=== PATIENT | male | born 1965 | race African-American/Black ===

== ENCOUNTER 2018-09-12 22:16 | Observation (INO) | payer MEDICARE, OTHER ==
[~2018-09-12] VITALS: Ht 170.2 cm; Wt 90.4 kg
[2018-09-13] MEDS ORDERED: SOD CHLORIDE 0.9% 500 ML IV STA (00:13)
[2018-09-13] MEDS ORDERED: morphine 4 MG/ML VIAL IV STA (00:13)
[2018-09-13] MEDS ORDERED: ONDANSETRON 4 MG INJ IV STA (00:13)
--- NOTE | 2018-09-13 02:53 | ERD ---
ER Documentation Chief Complaint Chief Complaint BIB SELF, CC: CHEST PAIN X 24 HOURS, NO MEDS TAKEN HPI This is a 53-year-old with chest pain for the past 24 hours on and off. Denies any fevers chills nausea vomiting. Mild associated shortness of breath. Pain is mild to moderate intensity with no exacerbating alleviating factors. Denies any cardiac history. ROS All systems reviewed and are negative except as per history of present illness. Allergies Allergies: Coded Allergies: acetaminophen (Verified Allergy, Unknown, 09/12/18) hydrocodone (Verified Allergy, Unknown, 09/12/18) ibuprofen (Verified Allergy, Unknown, 09/12/18) Physical Exam Vitals Vital Signs Date Temp Pulse Resp B/P (MAP) Pulse Ox O2 O2 Flow FiO2 Time Delivery Rate 09/13/18 107 16 132/89 99 Room Air 02:20 (103) 09/12/18 98.1 116 19 128/84 100 22:31 (99) Physical Exam Const: No acute distress Head: Atraumatic Eyes: Normal Conjunctiva ENT: Normal External Ears, Nose and Mouth. Neck: Full range of motion. No meningismus. Resp: Clear to auscultation bilaterally Cardio: Regular rate and rhythm, no murmurs Abd: Soft, non tender, non distended. Normal bowel sounds Skin: No petechiae or rashes Back: No midline or flank tenderness Ext: No cyanosis, or edema Neur: Awake and alert Psych: Normal Mood and Affect Result Diagram: 09/13/18 0104 09/13/18 0104 Results 24 hrs Laboratory Tests Test 09/13/18 01:04 White Blood Count 7.4 10^3/ul Red Blood Count 3.99 10^6/ul Hemoglobin 8.9 g/dl Hematocrit 28.7 % Mean Corpuscular Volume 71.9 fl Mean Corpuscular Hemoglobin 22.3 pg Mean Corpuscular Hemoglobin Concent 31.0 g/dl Red Cell Distribution Width 23.1 % Platelet Count 294 10^3/UL Mean Platelet Volume 9.7 fl Immature Granulocytes % 1.600 % Neutrophils % 67.8 % Lymphocytes % 18.8 % Monocytes % 11.0 % Eosinophils % 0.7 % Basophils % 0.1 % Nucleated Red Blood Cells % 0.0 /100WBC Immature Granulocytes # 0.120 10^3/ul Neutrophils # 5.0 10^3/ul Lymphocytes # 1.4 10^3/ul Monocytes # 0.8 10^3/ul Eosinophils # 0.1 10^3/ul Basophils # 0.0 10^3/ul Nucleated Red Blood Cells # 0.0 10^3/ul Prothrombin Time 12.4 Sec Prothrombin Time Ratio 1.0 INR International Normalized Ratio 0.91 Activated Partial Thromboplast Time 23.0 Sec Sodium Level 141 mmol/L Potassium Level 3.6 mmol/L Chloride Level 108 mmol/L Carbon Dioxide Level 24 mmol/L Anion Gap 9 Blood Urea Nitrogen 20 mg/dl Creatinine 1.11 mg/dl Est Glomerular Filtrat Rate mL/min > 60 mL/min Glucose Level 87 mg/dl Calcium Level 9.0 mg/dl Total Bilirubin 0.1 mg/dl Direct Bilirubin 0.00 mg/dl Indirect Bilirubin 0.1 mg/dl Aspartate Amino Transf (AST/SGOT) 94 IU/L Alanine Aminotransferase (ALT/SGPT) 103 IU/L Alkaline Phosphatase 124 IU/L Troponin I < 0.012 ng/ml B-Type Natriuretic Peptide 247 PG/ML Total Protein 6.7 g/dl Albumin 3.9 g/dl Globulin 2.80 g/dl Albumin/Globulin Ratio 1.39 Lipase 253 U/L Current Medications Medications Dose Sig/John Start Time Status Last (Trade) Ordered Route PRN Stop Time Admin Dose Reason Admin Sodium 500 ml @ Q1H STAT 09/13/18 DC 09/13/18 Chloride 500 mls/hr IV 00:13 09/13/18 00:54 01:12 Morphine 4 mg ONCE STAT 09/13/18 DC 09/13/18 Sulfate IV 00:13 09/13/18 00:53 (morphine) 00:14 Ondansetron 4 mg ONCE STAT 09/13/18 DC 09/13/18 HCl (Zofran IV 00:13 09/13/18 00:54 Inj) 00:14 1.25 mg Q4H RESP 09/13/18 UNV Levalbuterol THERAPY PRN 03:00 (Xopenex HHN WHEEZING Neb) AND RESP DISTRESS Morphine 1 mg Q4H PRN 09/13/18 UNV Sulfate IV SEVERE 03:00 (morphine) PAIN LEVEL 7-10 1 tab Q5M PRN 09/13/18 UNV Nitroglycerin SL ANGINA 03:00 (Nitroglyceri n (Sl Tab) 0.4 Mg) Procedures/MDM Emergency department course: Patient seen and evaluated by triage nurse. Placed in bed from evaluation. A stat cardiac workup. Placed on continuous chronic monitor. Given morphine is a former pain control. Serial exams are stable. EKG: Rate/Rhythm: [Normal Sinus Rhythm] QRS, ST, T-waves: [No changes consistent w/ acute ischemia] Impression: [No evidence of ischemia or arrhythmia] Chest X-ray 1V Interpreted by me: Soft Tissue: No acute abn ormalities Bones: No acute abnormalities Mediastinum/Cardiac Silhouette/Lungs: [No acute abnormalities] Medical decision making: Patient's symptoms are concerning for cardiac cause will require inpatient workup and continuous monitoring. Further w/u for ischemia, arrhythmia, PE or dissection will be deferred to the inpatient team. Accepting Care Team: Current data and ongoing care discussed. Time: 2 AM Primary Provider: Dr. Baltazar Consulting: Deferred to inpatient team Outstanding Data: none Departure Diagnosis: Primary Impression: Chest pain Chest pain type: unspecified Qualified Codes: R07.9 - Chest pain, unspecified Condition: Serious SUSANNE WASHINGTON Sep 13, 2018 02:53
[2018-09-13] MEDS ORDERED: NACL 0.9% 3 ML SYG IV SCH (03:00)
[2018-09-13] MEDS ORDERED: BISACODYL (EC) 5 MG TAB PO PRN (03:00)
[2018-09-13] MEDS ORDERED: ONDANSETRON 4 MG INJ IV PRN (03:00)
[2018-09-13] MEDS ORDERED: METHYLPREDNISOLONE 125 MG INJ IV ONE (03:00)
[2018-09-13] MEDS ORDERED: NITROGLYCERIN (SL) 0.4 MG TAB SL PRN ×2 (03:00)
[2018-09-13] MEDS ORDERED: morphine 2 MG INJ IV PRN (03:00)
[2018-09-13] MEDS ORDERED: FUROSEMIDE 40 MG INJ IV ONE (03:00)
[2018-09-13] MEDS ORDERED: LEVALBUTEROL (NEB) 1.25 MG/0.5 ML AMP HHN PRN (03:00)
[2018-09-13] MEDS ORDERED: DOCUSATE SODIUM 100 MG CAP PO PRN (03:00)
[2018-09-13 03:01] VITALS: PULSE 101
--- NOTE | 2018-09-13 03:07 | HP ---
Date/Time of Note Date/Time of Note DATE: 09/13/18 TIME: 02:53 Assessment/Plan VTE Prophylaxis SCD applied (from Nsg): Yes Pharmacological prophylaxis: NA/contraindicated Pharm contraindication: low risk/ambulating Lines/Catheters IV Catheter Type (from Nrsg): Saline Lock Assessment/Plan Hospital Course This is a 53-year-old male being admitted to the telemetry floor for: #1 chest pain: Rule out ACS versus asthma versus other. Will check cardiac enzymes x1, the first that was negative. Will check an echocardiogram. PRN nitro/morphine. Hemoglobin A1c TSH, lipid panel. Consider cardiology consultation #2 Bilateral wheezing: Asthma exacerbation versus CHF. Patient has trace bilateral lower extremity edema however chest x-ray appears clear. One-time dose of 20 mg of IV Lasix. Xopenex every 4 hours, Solu-Medrol loading dose f ollowed by prednisone burst times 5 days. #3 night sweats: Patient reports night sweats times 1 month. Patient also was noted to have microcytic anemia. Will check a stool occult blood. Will check HIV. Will check ethanol level urine drug screen, the patient denies any illicit drug use or alcohol. Consider further workup for possible underlying malignancy. Will check right upper quadrant ultrasound given patient's transaminitis. #4 microcytic anemia: Hemoglobin 8.9. We will check stool occult blood, iron stores, please see #3. #5 transaminitis: Check right upper quadrant ultrasound. Coagulation studies are within normal values. #6 asthma: Please see #2, will need to confirm patient's home medications #7 hypertension: We will need to confirm patient's home medications. #8 DVT GI prophylaxis: SCDs, and Protonix Further treatment strategy will be implemented as per the clinical course. Result Diagram: 09/13/18 01009/13/18 0104 Results 24hrs Laboratory Tests Test 09/13/18 01:04 White Blood Count 7.4 Red Blood Count 3.99 L Hemoglobin 8.9 L Hematocrit 28.7 L Mean Corpuscular Volume 71.9 L Mean Corpuscular Hemoglobin 22.3 L Mean Corpuscular Hemoglobin Concent 31.0 L Red Cell Distribution Width 23.1 H Platelet Count 294 Mean Platelet Volume 9.7 Immature Granulocytes % 1.600 H Neutrophils % 67.8 Lymphocytes % 18.8 Monocytes % 11.0 Eosinophils % 0.7 Basophils % 0.1 Nucleated Red Blood Cells % 0.0 Immature Granulocytes # 0.120 H Neutrophils # 5.0 Lymphocytes # 1.4 Monocytes # 0.8 Eosinophils # 0.1 Basophils # 0.0 Nucleated Red Blood Cells # 0.0 Prothrombin Time 12.4 Prothrombin Time Ratio 1.0 INR International Normalized Ratio 0.91 Activated Partial Thromboplast Time 23.0 Sodium Level 141 Potassium Level 3.6 Chloride Level 108 Carbon Dioxide Level 24 Anion Gap 9 Blood Urea Nitrogen 20 Creatinine 1.11 Est Glomerular Filtrat Rate mL/min > 60 Glucose Level 87 Calcium Level 9.0 Total Bilirubin 0.1 L Direct Bilirubin 0.00 Indirect Bilirubin 0.1 Aspartate Amino Transf (AST/SGOT) 94 H Alanine Aminotransferase (ALT/SGPT) 103 H Alkaline Phosphatase 124 H Troponin I < 0.012 B-Type Natriuretic Peptide 247 H Total Protein 6.7 Albumin 3.9 Globulin 2.80 Albumin/Globulin Ratio 1.39 Lipase 253 HPI/ROS Admit Date/Time Admit Date/Time Hx of Present Illness Chief complaint: Chest pain times 72 hours This is a 53-year-old male with a past medical history of asthma and hypertension who presents with 72 hours of left-sided chest pain. Patient repo rts that he had left-sided chest pain that was sharp in nature radiating across his chest into his left arm. He states that he try to see if it would get better on its own but since then get better and he did not feel better he came to the ER. He does report shortness of breath as well. He denies any diaphoresis. Denies any lower extremity edema. Denies any wheezing. Denies any fevers. He currently lives with his sister. Patient also does report that he has been experiencing night sweats for approximately 1 month. Denies any weight loss that he knows of. Denies any IV drug use, does report a history of smoking in the past. Denied is denies any high risk sexual activity. Denies an y drinking. Allergies: Acetaminophen, hydrocodone, ibuprofen Medications: See SEP ROS Const: As per HPI Eyes : No pain discharge or redness or change in visual acuity ENT: No pain, sore throat, congestion, congestion, dysphagia or discharge Respiratory: As per HPI Cardiovascular: As per HPI GI : no change in appetite, abdominal pain, nausea, vomiting, diarrhea, constipation, or change in the color his stool Genitourinary: No dysuria, hematuria, flank pain , discharge or CVA tenderness Musculoskeletal: No joint pain, back pain, neck pain, restricted range of motion in neck or joints Skin: No rash, bruising or hives Neuro: No headache, dizziness, syncope, seizure, focal weakness Endocrine: No polyuria, polydipsia, temperature intolerance Psych: No hallucination, depression, anxiety or suicidal ideation PMH/Family/Social Past Medical History Asthma, hypertension Medications Current Medications Levalbuterol (Xopenex Neb) 1.25 mg Q4H RESP THERAPY PRN HHN WHEEZING AND RESP DISTRESS; Start 09/13/18 at 03:00; Status UNV Morphine Sulfate (morphine) 1 mg Q4H PRN IV SEVERE PAIN LEVEL 7-10; Start 09/13/18 at 03:00; Status UNV Nitroglycerin (Nitroglycerin (Sl Tab) 0.4 Mg) 1 tab Q5M PRN SL ANGINA; Start 09/13/18 at 03:00; Status UNV Furosemide (Lasix) 40 mg ONCE ONCE IV ; Start 09/13/18 at 03:00; Stop 09/13/18 at 03:01; Status UNV Methylprednisolone Sodium Succinate (Solu-Medrol) 125 mg ONCE ONCE IV ; Start 09/13/18 at 03:00; Stop 09/13/18 at 03:01; Status UNV Coded Allergies: acetaminophen (Verified Allergy, Unknown, 09/12/18) hydrocodone (Verified Allergy, Unknown, 09/12/18) ibuprofen (Verified Allergy, Unknown, 09/12/18) Past Surgical History Left knee surgery, cholecystectomy Family History Significant Family History: no pertinent family hx Social History Alcohol Use: none Smoking Status: Former smoker Drug Use: none Exam/Review of Systems Vital Signs Vitals Vital Signs Date Temp Pulse Resp B/P (MAP) Pulse Ox O2 O2 Flow FiO2 Time Delivery Rate 09/13/18 107 16 132/89 99 Room Air 02:20 (103) 09/12/18 98.1 22:31 Exam Exam General: Currently lying in bed lethargic, reports chest pain HEENT: Atraumatic, normocephalic. The pupils are equal, round and reactive. Extraocular motor are intact Neck: Supple with full range of motion. No rigidity or meningismus Chest: Tenderness to palpation across anterior chest wall Lungs: Expiratory wheezing bilaterally, nonlabored breathing. Heart: Sinus tachycardia Abdomen: Soft , nontender, nondistended , bowel sounds are present. No guarding no rebound tenderness , No masses or organomegaly. No costovertebral temporal angle mass Extremities: Trace bilateral lower extremity edema Neurologic: Normal mental status, speech normal, cranial nerves II through XII are intact, motor and sensory are intact, no focal weakness Additional Comments PROCEDURE: CHEST - 1 VIEW CLINICAL INDICATION: 53-year-old male with chest pain. TECHNIQUE: A single frontal AP semi-erect portable view of the chest was performed. The images were reviewed on a PACS workstation. COMPARISON: None. FINDINGS: The cardiomediastinal silhouette is mildly enlarged. There is a shallow inspiration there is mild left basilar subsegmental atelectasis and/or scarring. There is no evidence for congestive heart failure. There is no evidence for pneumothorax. The osseous structures are intact. IMPRESSION: 1. Cardiomegaly. 2. Mild bibasilar subsegmental atelectasis and/or scarring. Prior studies are not available to assess interval change. .Jean Carlos Lee MD, MD Date Time Electronically viewed and signed by .Jean Carlos Lee MD, MD on 09/13/2018 01:58 .M/ CC: SUSANNE WASHINGTON [phone] BARBIE AVILEZ Sep 13, 2018 03:04
[2018-09-13 03:10] VITALS: Ht 170.2 cm; Wt 90.4 kg
[2018-09-13] MEDS ORDERED: METO-448 PO (03:16)
[2018-09-13] MEDS ORDERED: ASPI-817 PO (03:16)
[2018-09-13] MEDS ORDERED: ALBU18HF (03:16)
[2018-09-13] MEDS ORDERED: FURO40TA4 PO (03:16)
[2018-09-13] MEDS ORDERED: OMEP20CA16 PO (03:16)
[2018-09-13] MEDS ORDERED: BUDE6HFA (03:16)
[2018-09-13] MEDS ORDERED: LORA-444 PO (03:17)
[2018-09-13 04:00] VITALS: BP 158/78; PULSE 96; PULSE 97; RESP 18
[2018-09-13] MEDS: morphine 2 MG INJ IV PRN ×2 (04:05→08:14)
[2018-09-13 08:01] VITALS: PULSE 102
[2018-09-13] MEDS ORDERED: FUROSEMIDE 20 MG INJ IV ONE (09:00)
[2018-09-13] MEDS ORDERED: predniSONE 20 MG TAB PO SCH (09:00)
[2018-09-13] MEDS ORDERED: ASPIRIN 81 MG TAB PO SCH (09:00)
--- NOTE | 2018-09-13 10:55 | DS ---
Date/Time of Note Date/Time of Note DATE: 09/13/18 TIME: 10:51 Discharge Summary Admission/Discharge Info Admit Date/Time Sep 13, 2018 at 02:18 Discharge Date/Time Sep 13, 2018 at 09:15(AGAINST MEDICAL ADVICE) Discharge Diagnosis Admitting diagnosis: chest pain,likely noon-cardia,left ama before work up completed transminitis asthma hypertension Hospital Course This is a 53-year-old male admitted for chest pain, rule out acute coronary syndrome. As the plan is to keep patient in-house for cardiology evaluation and to rule out acute coronary syndrome, patient decided to leave AGAINST MEDICAL ADVICE.Despite our efforts, patient had decided to leave AGAINST MEDICAL ADVICE. Patient has normal mental status and full decisional capacity. Patient under stood her condition and the risk of leaving AMA, including but not limited to permanent disability, etc., and had an opportunity to ask questions about own medical condition. The patient has been informed that the paient may return for care anytime and has been referred to primary care provider for follow-up as soon as possible. case d/w [facility] Reported Medications Lorazepam* (Ativan*) 2 Mg Tablet, 2 MG PO HS PRN for ANXIETY, #30 TAB 09/13/18 Albuterol Sulfate* (Ventolin HFA*) 18 Gm Hfa.aer.ad 09/13/18 Metoprolol Tartrate* (Lopressor*) 25 Mg Tab, 25 MG PO BID for 30 Days, #60 09/13/18 Omeprazole* (Omeprazole*) 20 Mg Capsule., 20 MG PO DAILY for 90 Days, #90 09/13/18 Aspirin* (Aspirin* EC) 81 Mg Tablet., 81 MG PO DAILY for 30 Days, #30 09/13/18 Furosemide* (Furosemide*) 40 Mg Tablet, 40 MG PO DAILY for 90 Days, #90 09/13/18 Budesonide-Formoterol Fumarate* (Symbicort*) 160-4.5 Hfa.aer.ad, for 90 Days 09/13/18 Primary Care Provider Care Physician No Primary Pending Labs Laboratory Tests Test 09/13/18 01:04 09/13/18 05:08 09/13/18 05:09 09/13/18 07:27 White Blood 7.4 5.0 Count 10^3/ul (4.8-10 10^3/ul (4.8-1 .8) 0.8) Red Blood 3.99 3.54 Count 10^6/ul (4.70-6 10^6/ul (4.70- .10) 6.10) Hemoglobin 8.9 7.8 g/dl (14.0-18.0 g/dl (14.0-18. ) 0) Hematocrit 28.7 26.1 % (42.0-52.0) % (42.0-52.0) Mean 71.9 73.7 Corpuscular fl (82.0-101.0) fl (82.0-101.0 Volume ) Mean 22.3 22.0 Corpuscular pg (29.0-33.0) pg (29.0-33.0) Hemoglobin Mean 31.0 29.9 Corpuscular g/dl (32.0-37.0 g/dl (32.0-37. Hemoglobin Conc ) 0) ent Red Cell 23.1 23.1 Distribution % (11.5-14.5) % (11.5-14.5) Width Platelet Count 294 260 10^3/UL (140-41 10^3/UL (140-4 5) 15) Mean Platelet 9.7 10.1 Volume fl (7.4-10.4) fl (7.4-10.4) Immature 1.600 1.400 Granulocytes % % (0.001-0.429) % (0.001-0.429 ) Neutrophils % 67.8 65.4 % (39.0-77.0) % (39.0-77.0) Lymphocytes % 18.8 21.4 % (15.0-51.0) % (15.0-51.0) Monocytes % 11.0 11.0 % (0.0-11.0) % (0.0-11.0) Eosinophils % 0.7 % (0.0-7.0) 0.8 % (0.0-7.0) Basophils % 0.1 % (0.0-2.0) 0.0 % (0.0-2.0) Nucleated Red 0.0 0.0 Blood Cells % /100WBC (0.0-0. /100WBC (0.0-0 0) .0) Immature 0.120 0.070 Granulocytes # 10^3/ul (0.0-0. 10^3/ul (0.0-0 031) .031) Neutrophils # 5.0 3.3 10^3/ul (1.6-7. 10^3/ul (1.6-7 5) .5) Lymphocytes # 1.4 1.1 10^3/ul (0.8-2. 10^3/ul (0.8-2 9) .9) Monocytes # 0.8 0.6 10^3/ul (0.3-0. 10^3/ul (0.3-0 9) .9) Eosinophils # 0.1 0.0 10^3/ul (0.0-0. 10^3/ul (0.0-0 5) .5) Basophils # 0.0 0.0 10^3/ul (0.0-0. 10^3/ul (0.0-0 1) .1) Nucleated Red 0.0 0.0 Blood Cells # 10^3/ul (0.0-0. 10^3/ul (0.0-0 0) .0) Prothrombin 12.4 Time Sec (11.9-14.9) Prothrombin 1.0 Time Ratio INR 0.91 International Normalized Rati o Activated 23.0 Partial Thrombo Sec (23.0-35.0) plast Time D-Dimer 303.10 ng/ml (<460) D-Dimer Comment Sodium Level 141 139 mmol/L (135-144 mmol/L (135-14 ) 4) Potassium 3.6 3.9 Level mmol/L (3.5-5.1 mmol/L (3.5-5. ) 1) Chloride Level 108 108 mmol/L (97-110) mmol/L (97-110 ) Carbon Dioxide 24 23 Level mmol/L (21-31) mmol/L (21-31) Anion Gap 9 (5-13) 8 (5-13) Blood Urea 20 mg/dl (7-20) 18 Nitrogen mg/dl (7-20) Creatinine 1.11 1.02 mg/dl (0.61-1.2 mg/dl (0.61-1. 4) 24) Est Glomerular > 60 > 60 Filtrat mL/min (>60) mL/min (>60) Rate mL/min Glucose Level 87 83 mg/dl (70-220) mg/dl (70-220) Hemoglobin A1c 6.0 % (0-5.9) Calcium Level 9.0 8.7 mg/dl (8.4-10.2 mg/dl (8.4-10. ) 2) Iron Level 36 ug/dl (35-150) Total Iron 450 Binding ug/dl (241-421) Capacity Percent Iron 8 % SAT (22-52) Saturation Ferritin 15.6 ng/ml (11.1-264 .0) Total 0.1 0.0 Bilirubin mg/dl (0.2-1.3) mg/dl (0.2-1.3 ) Direct 0.00 0.00 Bilirubin mg/dl (0.00-0.2 mg/dl (0.00-0. 0) 20) Indirect 0.1 0.0 Bilirubin mg/dl (0-1.1) mg/dl (0-1.1) Aspartate Amino 94 IU/L (15-46) 65 Transf (AST/SGO IU/L (15-46) T) Alanine 103 87 Aminotransferas IU/L (13-69) IU/L (13-69) e (ALT/SGPT) Alkaline 124 94 Phosphatase IU/L (42-121) IU/L (42-121) Troponin I < 0.012 < 0.012 ng/ml (0.000-0. ng/ml (0.000-0 120) .120) B-Type 247 Natriuretic PG/ML (0-125) Peptide Total Protein 6.7 5.8 g/dl (6.1-8.1) g/dl (6.1-8.1) Albumin 3.9 3.4 g/dl (3.3-4.9) g/dl (3.3-4.9) Globulin 2.80 2.40 g/dl (1.3-3.2) g/dl (1.3-3.2) Albumin/Globuli 1.39 1.41 n Ratio Triglycerides 255 Level mg/dl (0-149) Cholesterol 181 Level mg/dl (100-200) LDL 12 mg/dl Cholesterol, Calculated HDL 118 Cholesterol mg/dl (28-71) Cholesterol/HDL 1.5 RATIO Ratio Lipase 253 U/L (23-300) Thyroid 2.310 Stimulating MIU/L (0.465-4. Hormone (TSH) 680) Urine Color YELLOW (YELLOW ) Urine Clarity CLEAR (CLEAR) Urine pH 6.0 (5.0-9.0) Urine Specific 1.015 (1.003-1 [place] .030) Urine Ketones NEGATIVE mg/dL (NEGATIV E) Urine Nitrite NEGATIVE mg/dL (NEGATIV E) Urine NEGATIVE Bilirubin mg/dL (NEGATIV E) Urine NEGATIVE Urobilinogen mg/dL (NEGATIV E) Urine Leukocyte NEGATIVE Heena/u Esterase l Urine NEGATIVE Hemoglobin mg/dL (NEGATIV E) Urine Glucose NEGATIVE mg/dL (NEGATIV E) Urine Total NEGATIVE Protein mg/dl (NEGATIV E) Magnesium 1.9 Level mg/dl (1.7-2.5 ) Ethyl Alcohol < 10.0 Level mg/dl (0-0) Hepatitis B NEGATIVE (NEGA Surface TIVE) Antigen Hepatitis B POSITIVE (NEGA Surface TIVE) Antibody Hepatitis C NEGATIVE (NEGA Antibody TIVE) HIV (1&2) NEGATIVE (NEGA Antibody TIVE) Creatine 93 Kinase IU/L (23-200) Creatine Kinase 2.5 Index Creatinine 2.28 Kinase MB ng/ml (0.0-2.4 (Mass) ) TYLOR MON NP Sep 13, 2018 10:55
--- NOTE | 2018-09-13 13:57 | CONS ---
Assessment/Plan Assessment/Plan Hospital Course (Demo Recall) #Anemia -pt has iron deficiency anemia -he need urgent GI eval -would plan to start IV iron although patient currently wants to leave -will perform anemia workup including the following: -check Vitamin b12 / folate -r/o thyroid dysfuction, check TSH -r/o monoclonal gammopathy, check spep -r/o hemolysis, check LDH, retic , haptoglobin -in case of MDS, will check epo level to see if patient would benefit from procrit will continue the workup as an out patient Consultation Date/Type/Reason Admit Date/Time 09/13/18 Date of Consultation: Sep 13, 2018 Type of Consult Hematology Reason for Consultation anemia Requesting Provider: BARBIE AVILEZ Date/Time of Note DATE: 09/13/18 TIME: 13:50 Hx of Present Illness 53 yo male who presented to [facility] on 09/13 with chest pain, shortness of breath, and night sweats. Pt was noted to have a negative troponin. On labs pt was noted to be anemic with a Hg 8.9 and microcytic with an MCV 73. Iron studies did reveal low iron sat of 8% with an elevated TIBC. His hepatitis panel and HIV were negative for any active infection. PT states he wants to leave for an emergency. He does not have time to wait to get worked up for his microcytic anemia. Constitutional: chills, diaphoresis, poor po Eyes: no complaints ENT: no complaints Respiratory: shortness of breath Cardiovascular: no complaints, lightheadedness Gastrointestinal: no complaints, constipation, decreased appetite Musculoskeletal: no complaints, bone/joint pain Skin: no complaints Neurologic: no complaints Endocrine: no complaints, polyuria Past Medical History asthma HTN Home Meds Reported Medications Lorazepam* (Ativan*) 2 Mg Tablet, 2 MG PO HS PRN for ANXIETY, #30 TAB 09/13/18 Albuterol Sulfate* (Ventolin HFA*) 18 Gm Hfa.aer.ad 09/13/18 Metoprolol Tartrate* (Lopressor*) 25 Mg Tab, 25 MG PO BID for 30 Days, #60 09/13/18 Omeprazole* (Omeprazole*) 20 Mg Capsule., 20 MG PO DAILY for 90 Days, #90 09/13/18 Aspirin* (Aspirin* EC) 81 Mg Tablet.dr, 81 MG PO DAILY for 30 Days, #30 09/13/18 Furosemide* (Furosemide*) 40 Mg Tablet, 40 MG PO DAILY for 90 Days, #90 09/13/18 Budesonide-Formoterol Fumarate* (Symbicort*) 160-4.5 Hfa.aer.ad, for 90 Days 09/13/18 Allergies: Coded Allergies: acetaminophen (Verified Allergy, Unknown, 09/12/18) hydrocodone (Verified Allergy, Unknown, 09/12/18) ibuprofen (Verified Allergy, Unknown, 09/12/18) Past Surgical History Past Surgical Hx: no surgical history Family History Significant Family History: no pertinent family hx Social History Alcohol Use: none Smoking Status: Former smoker Drug Use: none Exam/Review of Systems Exam Vitals Vital Signs Date Temp Pulse Resp B/P (MAP) Pulse Ox O2 O2 Flow FiO2 Time Delivery Rate 09/13/18 102 08:01 09/13/18 97.7 18 158/78 99 04:00 (104) 09/13/18 Room Air 02:20 Constitutional: alert, oriented Psych: no complaints Head: normocephalic Eyes: nl conjunctiva ENMT: nl external ears & nose Neck: supple Respiratory: clear to auscultation Cardiovascular: regular rate and rhythm Gastrointestinal: soft Musculoskeletal: nl extremities to inspection Extremities: normal pulses Results Result Diagram: 09/13/18 0509 09/13/18 0509 Results 24hrs Laboratory Tests Test 09/13/18 01:04 09/13/18 05:08 09/13/18 05:09 09/13/18 07:27 White Blood Count 7.4 5.0 # Red Blood Count 3.99 L 3.54 L Hemoglobin 8.9 L 7.8 L Hematocrit 28.7 L 26.1 L Mean Corpuscular Volume 71.9 L 73.7 L Mean Corpuscular 22.3 L 22.0 L Hemoglobin Mean Corpuscular 31.0 L 29.9 L Hemoglobin Concent Red Cell Distribution 23.1 H 23.1 H Width Platelet Count 294 260 Mean Platelet Volume 9.7 10.1 Immature Granulocytes % 1.600 H 1.400 H Neutrophils % 67.8 65.4 Lymphocytes % 18.8 21.4 Monocytes % 11.0 11.0 Eosinophils % 0.7 0.8 Basophils % 0.1 0.0 Nucleated Red Blood 0.0 0.0 Cells % Immature Granulocytes # 0.120 H 0.070 H Neutrophils # 5.0 3.3 Lymphocytes # 1.4 1.1 Monocytes # 0.8 0.6 Eosinophils # 0.1 0.0 Basophils # 0.0 0.0 Nucleated Red Blood 0.0 0.0 Cells # Prothrombin Time 12.4 Prothrombin Time Ratio 1.0 INR International 0.91 Normalized Ratio Activated 23.0 Partial Thromboplast Time D-Dimer 303.10 D-Dimer Comment Sodium Level 141 139 Potassium Level 3.6 3.9 Chloride Level 108 108 Carbon Dioxide Level 24 23 Anion Gap 9 8 Blood Urea Nitrogen 20 18 Creatinine 1.11 1.02 Est Glomerular Filtrat > 60 > 60 Rate mL/min Glucose Level 87 83 Hemoglobin A1c 6.0 H Calcium Level 9.0 8.7 Iron Level 36 Total Iron Binding 450 H Capacity Percent Iron Saturation 8 L Ferritin 15.6 Total Bilirubin 0.1 L 0.0 L Direct Bilirubin 0.00 0.00 Indirect Bilirubin 0.1 0.0 Aspartate Amino 94 H 65 H Transf (AST/SGOT) Alanine 103 H 87 H Aminotransferase (ALT/SG PT) Alkaline Phosphatase 124 H 94 Troponin I < 0.012 < 0.012 B-Type Natriuretic 247 H Peptide Total Protein 6.7 5.8 L Albumin 3.9 3.4 Globulin 2.80 2.40 Albumin/Globulin Ratio 1.39 1.41 Triglycerides Level 255 H Cholesterol Level 181 LDL Cholesterol, 12 Calculated HDL Cholesterol 118 H Cholesterol/HDL Ratio 1.5 Lipase 253 Thyroid Stimulating 2.310 Hormone (TSH) Urine Color YELLOW Urine Clarity CLEAR Urine pH 6.0 Urine Specific [place] 1.015 Urine Ketones NEGATIVE Urine Nitrite NEGATIVE Urine Bilirubin NEGATIVE Urine Urobilinogen NEGATIVE Urine Leukocyte Esterase NEGATIVE Urine Hemoglobin NEGATIVE Urine Glucose NEGATIVE Urine Total Protein NEGATIVE Magnesium Level 1.9 Ethyl Alcohol Level < 10.0 H Hepatitis B Surface NEGATIVE Antigen Hepatitis B Surface POSITIVE H Antibody Hepatitis C Antibody NEGATIVE HIV (1&2) Antibody NEGATIVE Creatine Kinase 93 Creatine Kinase Index 2.5 Creatinine Kinase MB 2.28 (Mass) DAYANARA RUSS M.D. Sep 13, 2018 13:57
[2018-09-14] MEDS ORDERED: SERT100T PO (19:46)
[2018-09-14] MEDS ORDERED: BUDE6HFA INHALATION (19:46)
[2018-09-14] MEDS ORDERED: LISI40TA3 PO (19:47)
[2018-09-14] MEDS ORDERED: ALBU18HF INHALATION (19:48)
== END 2018-09-13 09:15 | disposition left against medical advice (07) ==
LOC: E/R 22:16 → 6WM 09-13 02:18
PROVIDERS: ADMIT Family Medicine; ATTEND Family Medicine
DX: R07.9 Chest pain, unspecified (principal); R74.0 Nonspecific elevation of levels of transaminase and lactic acid dehydrogenase [LDH]; J45.909 Unspecified asthma, uncomplicated; I10 Essential (primary) hypertension; D50.9 Iron deficiency anemia, unspecified
CPT/HCPCS: 36415; 71045; 76705; 80053; 80061; 80307; 81003; 82550; 82553; 82728; 83036; 83540; 83690; 83735; 83880; 84443; 84484; 85025; 85378; 85610; 85730; 86703; 86706; 86709; 86803; 87340; 93005; 96374; 96375; 99285; G0378; J1940; J2270; J2405; J2930; J7040; J7512

== ENCOUNTER 2018-09-14 17:50 | Inpatient (IN) | payer MEDICARE, OTHER ==
[~2018-09-14] VITALS: Ht 170.2 cm; Wt 90.4 kg
[~2018-09-14 17:50] MED LIST: ALBU18HF; ASPI-817 PO; BUDE6HFA; FURO40TA4 PO; LORA-444 PO; METO-448 PO; OMEP20CA16 PO
[2018-09-14] MEDS ORDERED: IPRATROPIUM (NEB) 0.5 MG/2.5 ML AMP INH STA (19:04)
[2018-09-14] MEDS ORDERED: DEXAMETHASONE 10 MG/ML 1 ML INJ IV STA (19:04)
[2018-09-14] MEDS ORDERED: ALBUTEROL 0.5% (NEB) 2.5 MG/0.5 ML AMP INH STA (19:04)
--- NOTE | 2018-09-14 19:12 | ERD ---
ER Documentation Chief Complaint Chief Complaint mid-CP 04/20, constant, reproducible. onset at rest. HPI 53-year-old male with a history of COPD and hypertension presenting with chest pain that radiates from the right side of his chest to the left and to bilateral arms. No alleviating or exacerbating factors. Rates the pain as a 10 out of 10. He states that he has had this pain for the last 2 weeks. He states he was here 2 weeks ago but had to sign out AGAINST MEDICAL ADVICE due to family reasons. He is returning today because he continues to have pain and shortness of breath. His shortness of breath is not relieved by his home inhalers. Of note, I reviewed the patient's VEGA report and it states that the patient was here yesterday and signed out AGAINST MEDICAL ADVICE on September 13, 2018. This was confirmed by the medical record. I reviewed the admission and discharge notes from yesterday. I spoke to the patient regarding this and he is adamant that he was not admitted here and did not come here. He is suspecting identity theft. ROS All systems reviewed and are negative except as per history of present illness. Medications Home Meds Reported Medications Albuterol Sulfate* (Ventolin HFA*) 18 Gm Hfa.aer.ad, 2 PUFF INHALATION Q4H, #1 INHALER 09/14/18 Lisinopril* (Lisinopril*) 40 Mg Tablet, 40 MG PO DAILY, #30 TAB 09/14/18 Budesonide-Formoterol Fumarate* (Symbicort*) 160-4.5 Hfa.aer.ad, 2 PUFF INHALATION BID, #1 EACH 09/14/18 Sertraline Hcl* (Zoloft*) 100 Mg Tablet, 100 MG PO DAILY, #30 TAB 09/14/18 Lorazepam* (Ativan*) 2 Mg Tablet, 2 MG PO HS PRN for ANXIETY, #30 TAB 09/13/18 Metoprolol Tartrate* (Lopressor*) 25 Mg Tab, 25 MG PO BID for 30 Days, #60 09/13/18 Furosemide* (Furosemide*) 40 Mg Tablet, 40 MG PO DAILY for 90 Days, #90 09/13/18 Discontinued Reported Medications Albuterol Sulfate* (Ventolin HFA*) 18 Gm Hfa.aer.ad 09/13/18 Omeprazole* (Omeprazole*) 20 Mg Capsule.dr, 20 MG PO DAILY for 90 Days, #90 09/13/18 Aspirin* (Aspirin* EC) 81 Mg Tablet.dr, 81 MG PO DAILY for 30 Days, #30 09/13/18 Budesonide-Formoterol Fumarate* (Symbicort*) 160-4.5 Hfa.aer.ad, for 90 Days 09/13/18 Allergies Allergies: Coded Allergies: acetaminophen (Verified Allergy, Unknown, 09/14/18) hydrocodone (Verified Allergy, Unknown, 09/14/18) ibuprofen (Verified Allergy, Unknown, 09/14/18) PMhx/Soc History of Surgery: Yes (CHOLECYSTECTOMY) Anesthesia Reaction: No Hx Neurological Disorder: No Hx Respiratory Disorders: Yes (ASTHMA) Hx Cardiac Disorders: Yes (HTN) Hx Psychiatric Problems: No Hx Miscellaneous Medical Probl: No Hx Alcohol Use: No Hx Substance Use: No Hx Tobacco Use: No FmHx Family History: No diabetes Physical Exam Vitals Vital Signs Date Temp Pulse Resp B/P (MAP) Pulse Ox O2 O2 Flow FiO2 Time Delivery Rate 09/14/18 96 20 97 21 20:05 09/14/18 98.4 107 22 106/73 97 Room Air 18:40 (84) 09/14/18 98.9 107 22 111/62 97 18:17 (78) Physical Exam Const: No acute distress, obese Head: Atraumatic Eyes: Normal Conjunctiva ENT: Normal External Ears, Nose and Mouth. Neck: Full range of motion. No meningismus. Resp: Diffuse wheezing in all lung ponce with no rales or rhonchi Cardio: Regular rate and rhythm, no murmurs Abd: Soft, non tender, non distended. Normal bowel sounds Skin: No petechiae or rashes Back: No midline or flank tenderness Ext: No cyanosis, or edema Neur: Awake and alert, normal speech, moving all extremities Psych: Normal Mood and Affect Result Diagram: 09/14/18193909/14/181909 Results 24 hrs Laboratory Tests Test 09/14/18 19:08 09/14/18 19:10 09/14/18 19:40 Blood Gas Specimen Source Blood venous Arterial Blood Date Drawn 09/14/2018 7:15:03 PM Arterial Blood Gas VENOUS LINE Puncture Site Wing Test N/A Venous Blood pH 7.323 Venous Blood pCO2 52.2 mmHG (Temp Corrected) Venous Blood pO2 31.0 mmHG (Temp Corrected) Venous Blood HCO3 26.5 mmol/L Venous Blood Oxygen 48.5 mmHG Saturation Venous Blood Base Excess 0 mmol/L Venous Blood Total 10.3 g/dl Hemoglobin Venous Blood Oxyhemoglobin 46.5 % Venous Blood Methemoglobin 0.1 % Carboxyhemoglobin 4.1 % Blood Gas Temperature 37.0 C Blood Gas Modality ROOM AIR FiO2 21.0 % Blood Gas Notified Whom NV Blood Gas Notified Time 09/14/2018 7:33:02 PM Sodium Level 145 mmol/L Potassium Level 4.1 mmol/L Chloride Level 108 mmol/L Carbon Dioxide Level 23 mmol/L Anion Gap 14 Blood Urea Nitrogen 22 mg/dl Creatinine 1.44 mg/dl Est Glomerular Filtrat > 60 mL/min Rate mL/min Glucose Level 119 mg/dl Calcium Level 9.0 mg/dl Troponin I < 0.012 ng/ml White Blood Count 5.9 10^3/ul Red Blood Count 3.87 10^6/ul Hemoglobin 8.6 g/dl Hematocrit 29.0 % Mean Corpuscular Volume 74.9 fl Mean Corpuscular Hemoglobin 22.2 pg Mean Corpuscular 29.7 g/dl Hemoglobin Concent Red Cell Distribution Width 23.9 % Platelet Count 317 10^3/UL Mean Platelet Volume 10.0 fl Immature Granulocytes % 1.700 % Neutrophils % 64.4 % Lymphocytes % 25.8 % Monocytes % 7.4 % Eosinophils % 0.5 % Basophils % 0.2 % Nucleated Red Blood Cells % 0.0 /100WBC Immature Granulocytes # 0.100 10^3/ul Neutrophils # 3.8 10^3/ul Lymphocytes # 1.5 10^3/ul Monocytes # 0.4 10^3/ul Eosinophils # 0.0 10^3/ul Basophils # 0.0 10^3/ul Nucleated Red Blood Cells # 0.0 10^3/ul Current Medications Medications Dose Sig/John Start Time Status Last (Trade) Ordered Route PRN Stop Time Admin Dose Reason Admin Albuterol 10 mg ONCE STAT 09/14/18 DC 09/14/18 (Proventil INH 19:04 09/14/18 20:05 0.5% (Neb)) 19:06 Ipratropium 1 mg ONCE STAT 09/14/18 DC 09/14/18 Ragley INH 19:04 09/14/18 20:05 (Atrovent 19:06 0.02% (Neb)) 10 mg ONCE STAT 09/14/18 DC 09/14/18 Dexamethasone IV 19:04 09/14/18 19:39 (Decadron) 19:06 0.5 mg ONCE STAT 09/14/18 DC 09/14/18 Hydromorphone IV 19:52 09/14/18 20:12 HCl 19:53 (Dilaudid) Procedures/MDM EMERGENT LABS AND DIAGNOSTIC STUDIES: Lab Results above were reviewed and interpreted by me. CBC: Chronic anemia. No evidence of infection CMP: Elevated BUN and creatinine, elevated from labs done yesterday. No evidence of electrolyte abnormality, hypoglycemia Troponin within normal limits, not indicative of cardiac ischemia 12-lead EKG was interpreted by Ervin Canchola MD: Normal Sinus Rhythm Normal axis Normal intervals No acute ST or T wave changes suggestive of acute ischemia or STEMI. Radiology Results as interpreted by Radiology below were reviewed by SReal Canchola MD: Chest x-ray shows no acute abnormalities Initial Nursing notes reviewed. Previous Medical Records requested via the Electronic Health Record. EMERGENCY DEPARTMENT COURSE / MEDICAL DECISION MAKING: Patient is presenting with chest pain or shortness of breath. Exam is consistent with COPD exacerbation. Has acute renal failure as well. He was treated with breathing treatments with mild improvement of his symptoms. Doubt ACS or pulmonary embolism. I spoke with the hospitalist who admitted the patient 2 days ago, and he agreed to admit the patient for completion of his workup. Critical Care Time: 30 minutes Treatments/Evaluations: Close monitoring and treatment of unstable vital signs, cardiorespiratory, and neurologic status, while maintaining tight balance of fluid, respiratory, and cardiac interventions. This time includes discussing the case with the patient and the patients family. This time does not include all procedures stated elsewhere in this record. This time also includes reviewing old records, labs and radiological studies. This time includes examining and re- examining the patient. Additionally, this time also includes arranging care with admitting and consulting physicians. Accepting Care Team: Current data and ongoing care discussed. Time: Time of admission Primary Provider: Dr. Giovanny Badillo Diagnosis: Primary Impression: Chest pain Chest pain type: unspecified Qualified Codes: R07.9 - Chest pain, unspecified Additional Impressions: COPD exacerbation Acute renal failure Acute renal failure type: unspecified Qualified Codes: N17.9 - Acute kidney failure, unspecified Condition: Fair LIDYA CANCHOLA MD Sep 14, 2018 19:12
[2018-09-14] MEDS ORDERED: BUDE6HFA INHALATION (19:46)
[2018-09-14] MEDS ORDERED: SERT100T PO (19:46)
[2018-09-14] MEDS ORDERED: LISI40TA3 PO (19:47)
[2018-09-14] MEDS ORDERED: ALBU18HF INHALATION (19:48)
[2018-09-14] MEDS ORDERED: HYDROmorphONE 0.5 MG/0.5 ML SYG IV STA (19:52)
[2018-09-14] MEDS ORDERED: NACL 0.9% 3 ML SYG IV SCH (20:30)
[2018-09-14] MEDS ORDERED: DOCUSATE SODIUM 100 MG CAP PO PRN (20:30)
[2018-09-14] MEDS ORDERED: ONDANSETRON 4 MG INJ IV PRN (20:30)
[2018-09-14] MEDS ORDERED: BISACODYL (EC) 5 MG TAB PO PRN (20:30)
[2018-09-14] MEDS ORDERED: ONDANSETRON 4 MG TAB PO PRN (20:30)
[2018-09-14] MEDS ORDERED: ACETAMINOPHEN 325 MG TAB PO PRN (20:30)
--- NOTE | 2018-09-14 20:31 | HP ---
Date/Time of Note Date/Time of Note DATE: 09/14/18 TIME: 20:30 Assessment/Plan VTE Prophylaxis SCD applied (from Nsg): Yes Pharmacological prophylaxis: NA/contraindicated Pharm contraindication: low risk/ambulating Lines/Catheters IV Catheter Type (from Nrsg): Saline Lock Assessment/Plan Hospital Course This is a 53-year-old male being admitted to the telemetry floor for observation for: #1 COPD exacerbation: IV steroids, scheduled nebulizers. CT of the chest is already been ordered secondary to #3. No fevers or elevated white blood cell count or dyspnea to warrant antibiotics at the current time. #2 acute kidney injury: Secondary to hemodynamics, KINGA inhibitor use. Hold KINGA inhibitor. Patient did receive a 500 cc bolus normal saline in the ER. Monitor renal function. Avoid nephrotoxic agents. #3 night sweats: During previous admission and initiation of workup for malignan cy was undertaken. Patient reports night sweats times 1 month. Patient also was noted to have iron deficient microcytic anemia. Will check a stool occult blood. Labs from previous admission showed negative HIV and negative hepatitis B and C and A. Right upper quadrant ultrasound showed fatty liver. Patient also was seen by Dr. Hayes of hematology, will reconsult . CT of the chest has already been ordered. #4 Iron deficient microcytic anemia: Hemoglobin 8.6. Will start IV iron. We will also check a stool occult blood. Consult GI for possible EGD colonoscopy. #5 transaminitis: Likely secondary to fatty liver. #6 asthma/copd: Resume home inhaler. #7 hypertension: We will hold KINGA inhibitor at the current time given patient's AK I., Hold beta-norma at the current time given patient's wheezing. #8 depression: Continue sertraline, Ativan #8 DVT GI prophylaxis: SCDs, and Protonix Further treatment strategy will be implemented as per the clinical course. Result Diagram: 09/14/18193909/14/180 Results 24hrs Laboratory Tests Test 09/14/18 19:08 09/14/18 19:10 09/14/18 19:40 Blood Gas Specimen Source Blood venous Arterial Blood Date Drawn 09/14/2018 7:15:03 PM Arterial Blood Gas VENOUS LINE Puncture Site Wing Test N/A Venous Blood pH 7.323 L Venous Blood pCO2 52.2 H (Temp Corrected) Venous Blood pO2 31.0 H (Temp Corrected) Venous Blood HCO3 26.5 Venous Blood Oxygen Saturation 48.5 L Venous Blood Base Excess 0 Venous Blood Total Hemoglobin 10.3 Venous Blood Oxyhemoglobin 46.5 Venous Blood Methemoglobin 0.1 Carboxyhemoglobin 4.1 Blood Gas Temperature 37.0 Blood Gas Modality ROOM AIR FiO2 21.0 Blood Gas Notified Whom MA Blood Gas Notified Time 09/14/2018 7:33:02 PM Sodium Level 145 H Potassium Level 4.1 Chloride Level 108 Carbon Dioxide Level 23 Anion Gap 14 H Blood Urea Nitrogen 22 H Creatinine 1.44 H Est Glomerular Filtrat > 60 Rate mL/min Glucose Level 119 Calcium Level 9.0 Troponin I < 0.012 White Blood Count 5.9 Red Blood Count 3.87 L Hemoglobin 8.6 L Hematocrit 29.0 L Mean Corpuscular Volume 74.9 L Mean Corpuscular Hemoglobin 22.2 L Mean Corpuscular 29.7 L Hemoglobin Concent Red Cell Distribution Width 23.9 H Platelet Count 317 # Mean Platelet Volume 10.0 Immature Granulocytes % 1.700 H Neutrophils % 64.4 Lymphocytes % 25.8 Monocytes % 7.4 Eosinophils % 0.5 Basophils % 0.2 Nucleated Red Blood Cells % 0.0 Immature Granulocytes # 0.100 H Neutrophils # 3.8 Lymphocytes # 1.5 Monocytes # 0.4 Eosinophils # 0.0 Basophils # 0.0 Nucleated Red Blood Cells # 0.0 HPI/ROS Admit Date/Time Admit Date/Time Hx of Present Illness Chief complaint: Pain, shortness of breath Patient is a poor historian. This is a 53-year-old male with a history of COPD/asthma presenting with chest pain that radiates from the right side of his chest to the left and to bilateral arms. No alleviating or exacerbating factors. Rates the pain as a 10 out of 10. He states that he has had this pain for the last 2 weeks. He states he was here 2 weeks ago but had to sign out AGAINST MEDICAL ADVICE due to family reasons. He is returning today because he continues to have pain and shortness of breath. His shortness of breath is not relieved by his home inhalers. Patient of note was here on 09/13 and was admitted for chest pain at the same time as well. He however fully denies he was not here on 09/13 but that it was 2 weeks ago. Of note patient had negative troponins during his last admission on 09/13. Allergies: [place], he does report that he feels nausea when he takes ibuprofen or Tylenol but he does not have a true allergy to them Medications: See SOLIS CARSON Const: As per HPI Eyes : No pain discharge or redness or change in visual acuity ENT: No pain, sore throat, congestion, congestion, dysphagia or discharge Respiratory: As per HPI Cardiovascular: As per HPI GI : no change in appetite, abdominal pain, nausea, vomiting, diarrhea, constipation, or change in the color his stool Genitourinary: No dysuria, hematuria, flank pain , discharge or CVA tenderness Musculoskeletal: No joint pain, back pain, neck pain, restricted range of motion in neck or joints Skin: No rash, bruising or hives Neuro: No headache, dizziness, syncope, seizure, focal weakness Endocrine: No polyuria, polydipsia, temperature intolerance Psych: No hallucination, depression, anxiety or suicidal ideation PMH/Family/Social Past Medical History asthma/copd, hypertension Medications Current Medications Ondansetron HCl (Zofran Inj) 4 mg ER BRIDGE PRN IV NAUSEA/VOMITING; Start 09/14/18 at 20:30; Stop 09/15/18 at 20:29 Sertraline HCl (Zoloft) 100 mg DAILY PO ; Start 09/15/18 at 09:00; Status UNV Miscellaneous Information 2 puff BID INHALATION ; Start 09/14/18 at 21:00; Status UNV IV Flush (NS 3 ml) 3 ml PER PROTOCOL IV ; Start 09/14/18 at 20:30; Status UNV Ondansetron HCl (Zofran Tab) 4 mg Q6H PRN PO NAUSEA/VOMITING; Start 09/14/18 at 20:30; Status UNV Acetaminophen (Tylenol Tab) 650 mg Q6H PRN PO .PAIN 1-3 OR TEMP; Start 09/14/18 at 20:30; Status UNV Docusate Sodium (Colace) 100 mg Q12H PRN PO .CONSTIPATION; Start 09/14/18 at 20:30; Status UNV Bisacodyl (Dulcolax) 5 mg DAILY PRN PO .CONSTIPATION; Start 09/14/18 at 20:30; Status UNV Albuterol/ Ipratropium (Duoneb) 3 ml Q4H RESP THERAPY HHN ; Start 09/14/18 at 21:00; Status UNV Methylprednisolone Sodium Succinate (Solu-Medrol) 30 mg Q8 IV ; Start 09/14/18 at 22:00; Status UNV Coded Allergies: acetaminophen (Verified Allergy, Unknown, 09/14/18) hydrocodone (Verified Allergy, Unknown, 09/14/18) ibuprofen (Verified Allergy, Unknown, 09/14/18) Past Surgical History Left knee surgery, cholecystectomy Family History Significant Family History: no pertinent family hx Social History Alcohol Use: none Smoking Status: Current every day smoker Drug Use: none Exam/Review of Systems Vital Signs Vitals Vital Signs Date Temp Pulse Resp B/P (MAP) Pulse Ox O2 O2 Flow FiO2 Time Delivery Rate 09/14/18 96 20 97 21 20:05 09/14/18 98.4 106/73 Room Air 18:40 (84) Exam Exam General: Patient is currently sitting upright in bed he does not appear to be in any acute distress HEENT: Atraumatic, normocephalic. The pupils are equal, round and reactive. Extraocular motor are intact Neck: Supple with full range of motion. No rigidity or meningismus Chest: Nontender Lungs: Bilateral expiratory wheezing, nonlabored breathing Heart: Normal S1-S2, Regular rhythm and rate. No murmur, S3, or S4 Abdomen: Soft , nontender, nondistended , bowel sounds are present. No guarding no rebound tenderness , No masses or organomegaly. No costovertebral temporal angle mass Extremities: Normal to inspection, no edema no cyanosis Neurologic: Normal mental status, speech normal, cranial nerves II through XII are intact, motor and sensory are intact, BARBIE AVILEZ Sep 14, 2018 20:31
[2018-09-14] MEDS ORDERED: NON-FORMULARY/PATIENT OWN MED (Budesonide-Formoterol Fumarate* (Symbicort*) 2 PUFF) INHALATION SCH (21:00)
[2018-09-14] MEDS: ALBUTEROL/IPRATROPIUM (NEB) 3 ML AMP HHN SCH (21:00)
[2018-09-14] MEDS ORDERED: SOD CHLORIDE 0.9% 500 ML IV ONE (21:00)
[2018-09-14 21:30] VITALS: BP 112/74; PULSE 110; RESP 20
[2018-09-14] MEDS: METHYLPREDNISOLONE 40 MG INJ IV SCH (22:29)
[2018-09-14] MEDS ORDERED: morphine 2 MG INJ IV PRN (22:30)
[2018-09-15] VITALS (16 sets, daily range): BP systolic 118–172; BP diastolic 56–109; PULSE 68–150; RESP 20–22
[2018-09-15] MEDS ORDERED: oxyCODONE 5 MG TAB PO PRN
[2018-09-15] MEDS: ALBUTEROL/IPRATROPIUM (NEB) 3 ML AMP HHN SCH ×6 (01:09→20:03)
[2018-09-15] MEDS ORDERED: morphine 2 MG INJ IV PRN (02:30)
[2018-09-15] MEDS ORDERED: LORAZEPAM 1 MG TAB PO PRN (03:00)
[2018-09-15] MEDS: morphine 2 MG INJ IV PRN ×6 (03:13→23:52)
[2018-09-15] MEDS: METHYLPREDNISOLONE 40 MG INJ IV SCH ×2 (06:07→13:23)
[2018-09-15] MEDS: ARFORMOTEROL TARTRATE 15MCG/2 ML AMP HHN SCH ×2 (08:23→19:58)
[2018-09-15] MEDS: BUDESONIDE (NEB) 0.5MG/2ML AMP INH SCH ×2 (08:23→19:58)
[2018-09-15] MEDS: hydrALAzine 20 MG INJ IV PRN ×2 (08:28→19:33)
[2018-09-15] MEDS ORDERED: SERTRALINE 100 MG TAB PO SCH (09:00)
[2018-09-15] MEDS ORDERED: SOD FERRIC GLUC COMPLX 125 MG in SOD CHLORIDE 0.9% 100 ML IVPB SCH (13:00)
--- NOTE | 2018-09-15 14:19 | PN ---
Date/Time of Note Date/Time of Note DATE: 09/15/18 TIME: 13:57 Assessment/Plan VTE Prophylaxis Risk score (from Ns)>0 risk: 3 SCD applied (from Ns): Yes Pharmacological prophylaxis: LMWH Lines/Catheters IV Catheter Type (from Nrs): Saline Lock Urinary Cath still in place: No Assessment/Plan Assessment/Plan 1. COPD exacerbation: IV steroids, scheduled nebulizers, and levaquin 2. Acute kidney injury on admission, resolved 3. Right upper lobe infiltrates on CT, on levaquin, ID consult 4. Microcytic anemia, on iron 5.Transaminitis: Likely secondary to fatty liver, follow up with LFTs 6. Hypertension, controlled 7. Depression: Continue sertraline, Ativan 8 DVT GI prophylaxis,: lovenox Result Diagram: 09/15/18 0337 09/15/18 0337 Results 24hrs Laboratory Tests Test 09/14/18 19:08 09/14/18 19:10 09/14/18 19:40 09/15/18 03:37 Blood Gas Specimen Blood venous Source Arterial Blood 09/14/2018 7:15:03 Date Drawn PM Arterial Blood Gas VENOUS LINE Puncture Site Wing Test N/A Venous Blood pH 7.323 L Venous Blood pCO2 52.2 H (Temp Corrected) Venous Blood pO2 31.0 H (Temp Corrected) Venous Blood HCO3 26.5 Venous Blood 48.5 L Oxygen Saturation Venous Blood Base 0 Excess Venous Blood Total 10.3 Hemoglobin Venous Blood 46.5 Oxyhemoglobin Venous Blood 0.1 Methemoglobin Carboxyhemoglobin 4.1 Blood Gas 37.0 Temperature Blood Gas Modality ROOM AIR FiO2 21.0 Blood Gas Notified DC Whom Blood Gas Notified 09/14/2018 7:33:02 Time PM Sodium Level 145 H 144 Potassium Level 4.1 4.6 Chloride Level 108 110 Carbon Dioxide 23 23 Level Anion Gap 14 H 11 Blood Urea 22 H 20 Nitrogen Creatinine 1.44 H 1.24 Est Glomerular > 60 > 60 Filtrat Rate mL/min Glucose Level 119 280 #H Calcium Level 9.0 9.1 Troponin I < 0.012 < 0.012 White Blood Count 5.9 5.1 Red Blood Count 3.87 L 3.69 L Hemoglobin 8.6 L 8.2 L Hematocrit 29.0 L 27.4 L Mean Corpuscular 74.9 L 74.3 L Volume Mean Corpuscular 22.2 L 22.2 L Hemoglobin Mean Corpuscular 29.7 L 29.9 L Hemoglobin Concent Red Cell 23.9 H 23.2 H Distribution Width Platelet Count 317 # 302 Mean Platelet 10.0 9.9 Volume Immature 1.700 H 1.600 H Granulocytes % Neutrophils % 64.4 93.5 H Lymphocytes % 25.8 4.3 L Monocytes % 7.4 0.6 Eosinophils % 0.5 0.0 Basophils % 0.2 0.0 Nucleated Red 0.0 0.0 Blood Cells % Immature 0.100 H 0.080 H Granulocytes # Neutrophils # 3.8 4.8 Lymphocytes # 1.5 0.2 L Monocytes # 0.4 0.0 L Eosinophils # 0.0 0.0 Basophils # 0.0 0.0 Nucleated Red 0.0 0.0 Blood Cells # Magnesium Level 1.8 Total Bilirubin 0.0 L Direct Bilirubin 0.00 Indirect Bilirubin 0.0 Aspartate Amino 121 #H Transf (AST/SGOT) Alanine 210 H Aminotransferase ( ALT/SGPT) Alkaline 108 Phosphatase Creatine Kinase 73 Creatine Kinase 2.5 Index Creatinine Kinase 1.82 MB (Mass) Total Protein 6.6 Albumin 3.9 Globulin 2.70 Albumin/Globulin 1.44 Ratio Test 09/15/18 06:10 09/15/18 08:50 Urine Opiates Positive Screen Urine Barbiturates Negative Urine Amphetamines Negative Screen Urine Negative Benzodiazepines Screen Urine Cocaine Negative Screen Urine Cannabinoids Negative Creatine Kinase 71 Creatine Kinase 2.6 Index Creatinine Kinase 1.84 MB (Mass) Troponin I < 0.012 Subjective 24 Hr Interval Summary Free Text/Dictation less shortness of breath Exam/Review of Systems Exam Vitals Vital Signs Date Temp Pulse Resp B/P (MAP) Pulse Ox O2 O2 Flow FiO2 Time Delivery Rate 09/15/18 95 2.0 13:04 09/15/18 132 20 Nasal 28 13:03 Cannula 09/15/18 135/81 13:00 (99) 09/15/18 98.7 11:32 Intake and Output 09/14/18 09/14/18 09/15/18 1414:59 22:59 06:59 IntakeIntake Total 1750 ml OutputOutput Total 1250 ml BalanceBalance 500 ml Constitutional: alert, oriented, well developed Psych: no complaints, nl mood/affect Head: normocephalic, atraumatic Eyes: nl conjunctiva, EOMI, nl lids, PERRL ENMT: nl external ears & nose, nl lips & teeth, nl nasal mucosa & septum Neck: supple, non-tender Respiratory: clear to auscultation, normal air movement; No congested cough, No crackles/rales, No diminished breath sounds, No inter costal retraction, No labored breathing, No respirations, No tactile fremitus, No wheezing, No other Cardiovascular: regular rate and rhythm, nl pulses; No bruits, No diastolic murmur, No edema, No gallop, No irregular rhythm, No jugular venous distention (JVD), No murmurs/extra sounds, No rub, No systolic murmur, No S3, No S4, No other Gastrointestinal: soft, nl liver, spleen, non-tender Musculoskeletal: nl extremities to inspection Extremities: normal pulses; No calf tenderness, No cyanosis, No clubbing, No edema, No pitting pedal edema, No palpable cord, No tenderness, No other Neurological: AD SETTER II-XII intact, nl mental status, nl speech, nl strength Results Results 24hrs Laboratory Tests Test 09/14/18 19:08 09/14/18 19:10 09/14/18 19:40 09/15/18 03:37 Blood Gas Specimen Blood venous Source Arterial Blood 09/14/2018 7:15:03 Date Drawn PM Arterial Blood Gas VENOUS LINE Puncture Site Wing Test N/A Venous Blood pH 7.323 L Venous Blood pCO2 52.2 H (Temp Corrected) Venous Blood pO2 31.0 H (Temp Corrected) Venous Blood HCO3 26.5 Venous Blood 48.5 L Oxygen Saturation Venous Blood Base 0 Excess Venous Blood Total 10.3 Hemoglobin Venous Blood 46.5 Oxyhemoglobin Venous Blood 0.1 Methemoglobin Carboxyhemoglobin 4.1 Blood Gas 37.0 Temperature Blood Gas Modality ROOM AIR FiO2 21.0 Blood Gas Notified MA Whom Blood Gas Notified 09/14/2018 7:33:02 Time PM Sodium Level 145 H 144 Potassium Level 4.1 4.6 Chloride Level 108 110 Carbon Dioxide 23 23 Level Anion Gap 14 H 11 Blood Urea 22 H 20 Nitrogen Creatinine 1.44 H 1.24 Est Glomerular > 60 > 60 Filtrat Rate mL/min Glucose Level 119 280 #H Calcium Level 9.0 9.1 Troponin I < 0.012 < 0.012 White Blood Count 5.9 5.1 Red Blood Count 3.87 L 3.69 L Hemoglobin 8.6 L 8.2 L Hematocrit 29.0 L 27.4 L Mean Corpuscular 74.9 L 74.3 L Volume Mean Corpuscular 22.2 L 22.2 L Hemoglobin Mean Corpuscular 29.7 L 29.9 L Hemoglobin Concent Red Cell 23.9 H 23.2 H Distribution Width Platelet Count 317 # 302 Mean Platelet 10.0 9.9 Volume Immature 1.700 H 1.600 H Granulocytes % Neutrophils % 64.4 93.5 H Lymphocytes % 25.8 4.3 L Monocytes % 7.4 0.6 Eosinophils % 0.5 0.0 Basophils % 0.2 0.0 Nucleated Red 0.0 0.0 Blood Cells % Immature 0.100 H 0.080 H Granulocytes # Neutrophils # 3.8 4.8 Lymphocytes # 1.5 0.2 L Monocytes # 0.4 0.0 L Eosinophils # 0.0 0.0 Basophils # 0.0 0.0 Nucleated Red 0.0 0.0 Blood Cells # Magnesium Level 1.8 Total Bilirubin 0.0 L Direct Bilirubin 0.00 Indirect Bilirubin 0.0 Aspartate Amino 121 #H Transf (AST/SGOT) Alanine 210 H Aminotransferase ( ALT/SGPT) Alkaline 108 Phosphatase Creatine Kinase 73 Creatine Kinase 2.5 Index Creatinine Kinase 1.82 MB (Mass) Total Protein 6.6 Albumin 3.9 Globulin 2.70 Albumin/Globulin 1.44 Ratio Test 09/15/18 06:10 09/15/18 08:50 Urine Opiates Positive Screen Urine Barbiturates Negative Urine Amphetamines Negative Screen Urine Negative Benzodiazepines Screen Urine Cocaine Negative Screen Urine Cannabinoids Negative Creatine Kinase 71 Creatine Kinase 2.6 Index Creatinine Kinase 1.84 MB (Mass) Troponin I < 0.012 Medications Medication Current Medications Ondansetron HCl (Zofran Inj) 4 mg ER BRIDGE PRN IV NAUSEA/VOMITING; Start 09/14/18 at 20:30; Stop 09/15/18 at 20:29 Sertraline HCl (Zoloft) 100 mg DAILY PO Last administered on 09/15/18at 08:27; Admin Dose 100 MG; Start 09/15/18 at 09:00 IV Flush (NS 3 ml) 3 ml PER PROTOCOL IV ; Start 09/14/18 at 20:30 Ondansetron HCl (Zofran Tab) 4 mg Q6H PRN PO NAUSEA/VOMITING; Start 09/14/18 at 20:30 Acetaminophen (Tylenol Tab) 650 mg Q6H PRN PO .PAIN 1-3 OR TEMP; Start 09/14/18 at 20:30 Docusate Sodium (Colace) 100 mg Q12H PRN PO .CONSTIPATION; Start 09/14/18 at 20:30 Bisacodyl (Dulcolax) 5 mg DAILY PRN PO .CONSTIPATION; Start 09/14/18 at 20:30 Albuterol/ Ipratropium (Duoneb) 3 ml Q4H RESP THERAPY HHN Last administered on 09/15/18 13:02; Admin Dose 3 ML; Start 09/14/18 at 21:00 Methylprednisolone Sodium Succinate (Solu-Medrol) 30 mg Q8 IV Last administered on 09/15/18 13:23; Admin Dose 30 MG; Start 09/14/18 at 22:00 Ferric Sodium Gluconate Complex 125 mg/Sodium Chloride 100 ml @ 100 mls/hr DAILY@1300 IVPB Last administered on 09/15/18 12:58; Admin Dose 100 MLS/HR; Start 09/15/18 at 13:00; Stop 09/17/18 at 13:59 Oxycodone HCl (Roxicodone) 5 mg BID PRN PO PAIN Last administered on 09/14/18 23:45; Admin Dose 5 MG; Start 09/15/18 at 00:00 Lorazepam (Ativan) 2 mg HS PRN PO ANXIETY; Start 09/15/18 at 03:00 Arformoterol Tartrate (Brovana (Neb)) 2 ml BID RESP THERAPY HHN Last administered on 09/15/18 08:23; Admin Dose 2 ML; Start 09/15/18 at 09:00 Budesonide (Pulmicort (Neb)) 0.5 mg BID RESP THERAPY INH Last administered on 09/15/18 08:23; Admin Dose 0.5 MG; Start 09/15/18 at 09:00 Hydralazine HCl (Apresoline) 10 mg Q4H PRN IV ELEVATED BP, for SYSTOLIC >170 Last administered on 09/15/18 08:28; Admin Dose 10 MG; Start 09/15/18 at 08:00 URMILA OSWALD MD Sep 15, 2018 14:07
[2018-09-15] MEDS ORDERED: DILTIAZEM (CD) 120 MG CAP PO SCH (14:30)
[2018-09-15] MEDS ORDERED: DEXTROSE 50% 50 ML SYRINGE IV PRN ×2 (14:30)
[2018-09-15] MEDS ORDERED: GLUCAGON 1 MG INJ IM PRN (14:30)
[2018-09-15] MEDS ORDERED: GLUCOSE GEL 15 GRAM TUBE PO PRN ×2 (14:30)
[2018-09-15] MEDS ORDERED: GLUCOSE GEL 15 GRAM TUBE BUCCAL PRN (14:30)
[2018-09-15] MEDS: INSULIN ASPART [NOVOLOG] 3 ML PEN SC SCH ×2 (17:32→20:36)
--- NOTE | 2018-09-15 17:46 | RADRPT ---
Echocardiogram Report Patient Name: NOMAN MORRISONPatient ID: [id number] : 1965 (53y 2m)Study Date: 09/15/2018 7:38:28 AM Gender: MAccession #: [id number] Tech: Gemma Joe RDCS Location: [facility] Ref.Physician: BARBIE AVILEZ Height(Cm): BSA: Weight(Kg): Quality: AdequateAccount #: Procedures: Echocardiographic Report: Transthoracic echocardiogram with complete 2D, M-Mode, and doppler examination. Indications: Elevated bnp. Measurements: 2D/M Mode Doppler Measurement Value Normal Range Measurement Value Normal Range LVIDd 2D 4.4 [ 4.2 - 5.8 ] cm AV Peak Austen 1.9 [ 100.0 - 170.0 ] cm/sec LVIDs 2D 2.1 [ 2.5 - 4.0 ] cm AV Peak PG 15.0 [ 2.0 - 9.0 ] mmHg LVPWd 2D 1.2 [ 0.6 - 1.0 ] cm LVOT Peak Austen 1.3 [ 70.0 - 110.0 ] cm/sec IVSd 2D 1.1 [ 0.6 - 1.0 ] cm LVOT Peak PG 7.0 [ 2.0 - 6.0 ] mmHg AoR Diam 2D 2.7 [ 2.6 - 3.4 ] cm EDV 2D 86.8 [ 62.0 - 150.0 ] ml ESV 2D 14.9 [ 21.0 - 61.0 ] ml EF 2D 82.8 [ 52.0 - 72.0 ] percent LA Dimen 2D 3.5 [ 3.0 - 4.0 ] cm Findings: Left Ventricle: Normal left ventricular systolic function. Normal left ventricular cavity size. Mild concentric left ventricular hypertrophy. Ejection fraction is visually estimated at 60-65 %. Abnormal Diastolic Function. Right Ventricle: Normal right ventricular size. Normal right ventricular systolic function. Left Atrium: The left atrium is normal in size. Right Atrium: The right atrium is normal in size. Mitral Valve: Normal appearance and function of the mitral valve with trace physiologic regurgitation. Aortic Valve: No significant aortic stenosis or insufficiency. Aortic cusps appear mildly calcified. Tricuspid Valve: Normal appearance of the tricuspid valve. Unable to obtain RVSP due to minimal presence of tricuspid regurgitation. Pulmonic Valve: Normal pulmonic valve appearance. Pericardium: Normal pericardium with no significant pericardial effusion. Aorta: Normal aortic root. IVC: Normal size and normal respiratory collapse consistent with normal right atrial pressure. Conclusions: Normal left ventricular systolic function. Normal left ventricular cavity size. Mild concentric left ventricular hypertrophy. Ejection fraction is visually estimated at 60-65 %. Abnormal Diastolic Function. n. Normal appearance and function of the mitral valve with trace physiologic regurgitation. Normal appearance of the tricuspid valve. Unable to obtain RVSP due to minimal presence of tricuspid regurgitation. Electronically Signed By: Devin Peacock 2018-09-15 17:46:11 PST
--- NOTE | 2018-09-15 17:55 | CONS ---
DATE OF ADMISSION: 09/15/2018 DATE OF CONSULTATION: TYPE OF CONSULTATION: Gastroenterology. Dear Dr. Avilez: Thank you for asking me to see Mr. Abdi in GI consultation. HISTORY OF PRESENT ILLNESS: As you know, patient is a 53-year-old -[place] gentleman who is admitted to the hospital because of the history of shortness of breath and chest pain which apparentl y has been resolved since he has been admitted to the hospital. He was given IV steroids and breathi ng treatment. He also has history of hypertension, asthma. Since the admission, he says he is feeli ng much better; however, he was found to have a low hemoglobin around 8 grams and hence, a GI consult ation is requested. He has no history of vomiting blood or passing blood from the rectum. He has no history of indigestion, heartburn, belching or burping. REVIEW OF SYSTEMS: Positive for asthma, hypertension, elevated liver functions, depression. SOCIAL HISTORY: He does not smoke or drink. He is retired now. PHYSICAL EXAMINATION: GENERAL: The patient is a 53-year-old -[place] gentleman who at this time is alert, is well built. VITAL SIGNS: He is afebrile, temperature 98.2, blood pressure is 139/78. CARDIOVASCULAR: Normal heart sounds. RESPIRATORY: Normal breath sounds. ABDOMEN: Showed a soft abdomen with no palpable masses, no tenderness, no distention. LABORATORY WORKUP: Hemoglobin 8.2, hematocrit 27.4, WBC 5100. The BUN is 20, creatinine 1.24. Bili leonardo 0.0, AST 121, ALT 210, alkaline phosphatase 108, albumin 3.9. IMAGING STUDIES: Show chest x-ray of low lung volumes with lateral left lung base subsegmental atele ctasis. CAT scan of the chest showed focal ground glass opacity of the right upper lobe, peribronchi al thickening. CLINICAL IMPRESSION: From the gastrointestinal standpoint is less severe iron deficiency type of ane rgis, rule out gastrointestinal bleeding either due to peptic ulcer disease or gastrointestinal malign rosario. He has history of what appears perhaps pneumonia, history of asthma, hypertension. Abnormal liver fu nctions could be due to hypoxic liver damage; however choledocholithiasis cannot be excluded. PLAN: I recommend EGD, colonoscopy and also he needs MRCP eventually. Once again, doctor, thank you for this consultation. Dictated By: JOSE DE JESUS ALVAREZ/ZARA Conf#: [id number] [facility]#: [id number] CC: URMILA OSWALD MD; BARBIE AVILEZ MD;*EndCC*
[2018-09-15] MEDS ORDERED: PEG/ELECTROLYTES 4L BTL PO ONE (18:30)
[2018-09-15] MEDS ORDERED: METHYLPREDNISOLONE 40 MG INJ IV SCH (22:00)
[2018-09-16] VITALS: PULSE 115
--- NOTE | 2018-09-16 01:18 | CONS ---
DATE OF ADMISSION: 09/15/2018 DATE OF CONSULTATION: 09/15/2018 TYPE OF CONSULTATION: Infectious disease consultation for Dr. Milo Fulton. REQUESTING PHYSICIAN: Vini Avilez MD HISTORY OF PRESENT ILLNESS: A 53-year-old Afro-Turkmen male that was admitted on 09/14/2018 with a chief complaint of chest pain and shortness of breath and COPD exacerbation. The patient is an every day smoker. He states that he had night sweats for approximately 1 month prior to admission. Prior to admission, they apparently have resolved since that time. On arrival in the emergency room, he wa s found to have a white blood cell count of 5900 with 64 polys, 26 lymphs and 7 monocytes, and platel et count of 317,000. BUN 20, creatinine 1.2. GFR 64 mL per minute. Liver function tests suggest fa tty liver with an AST of 121 and ALT of 210. The described that recently he had chest pain radiating from the right to the left being 10/10 for approximately several days prior to admission. This has resolved since admission. The patient on a chest x-ray had a low lung volume in lateral left base myles bsegmental atelectasis. CT scan revealed focal ground glass opacities of the right upper lobe due to inflammatory response with mild cardiomegaly and COPD. The patient was begun treatment with Levaqui n and steroids and admitted to telemetry. He has made steady improvement and is now currently sittin g out of bed at the dressing table working his 2 cell phones. The patient had a chest x-ray on 09/13, which revealed cardiomegaly only and mild subsegmental atelectasis. PAST MEDICAL HISTORY: Remarkable for diabetes mellitus, COPD and iron deficiency anemia. HE IS ANURAG RGIC TO HYDROCODONE. He has a history of being an everyday smoker. PAST SURGICAL HISTORY: His operations have included a knee surgery on the left and a gallbladder exc ision. PHYSICAL EXAMINATION GENERAL: Reveals a mesomorphic obese Afro-Turkmen male who is alert and oriented and cooperative. HEENT: The pupils are constricted, round and react to light. Extraocular movements are full. The m outh has moist mucous membranes. NECK: Supple. CHEST: Clear. The breath sounds are somewhat distant on the right side, but not much HEART: Regular. There is no gallop or murmur. There is increased AP diameter of the chest. ABDOMEN: Protuberant, firm. No palpable organs or masses. The liver is enlarged. EXTREMITIES: Reveal no edema, cyanosis or clubbing. NEUROLOGIC: Grossly within normal limits. INITIAL IMPRESSION: 1. Primary atypical pneumonia, chronic obstructive pulmonary disease/asthmatic bronchitis, daily tob acco use. 2. Iron deficiency anemia, obesity, diabetes mellitus and hypertension. RECOMMENDATIONS: Continue present Levaquin and present ____ for 3 more days after discharge, which I understand is scheduled for tomorrow. Thank you for referring this interesting patient to Dr. Fulton. Dictated By: Crystal PEPPER MD EC/NTS Conf#: [id number] DID#: [id number] CC: VINI AVILEZ MD;*EndCC*
[2018-09-16] MEDS: morphine 2 MG INJ IV PRN (03:13)
[2018-09-16 03:49] VITALS: BP 139/93; PULSE 125; RESP 20
[2018-09-16 04:00] VITALS: PULSE 122
[2018-09-16] MEDS: ALBUTEROL/IPRATROPIUM (NEB) 3 ML AMP HHN SCH ×2 (04:09)
[2018-09-16] MEDS ORDERED: LEVOFLOXACIN 500 MG TAB PO SCH (06:00)
[2018-09-16 07:16] VITALS: BP 138/91; PULSE 117; RESP 20
[2018-09-16] MEDS ORDERED: ENOXAPARIN 40 MG/0.4 ML SYG SC SCH (09:00)
--- NOTE | 2018-09-16 15:25 | DS ---
Date/Time of Note Date/Time of Note DATE: 09/16/18 TIME: 15:19 Discharge Summary Admission/Discharge Info Admit Date/Time Sep 15, 2018 at 09:45 Discharge Date/Time Sep 16, 2018 at 07:30 Discharge Diagnosis 1. COPD exacerbation: IV steroids, scheduled nebulizers, and levaquin 2. Acute kidney injury on admission, resolved 3. Right upper lobe infiltrates on CT, on levaquin, ID consult 4. Microcytic anemia, on iron 5.Transaminitis: Likely secondary to fatty liver, follow up with LFTs 6. Hypertension, controlled 7. Depression: Continue sertraline, Ativan 8. Focal ground -glass opacities of the right upper lobe likely due to infectious/inflammatory process. Consider follow-up in 3 months with low-dose chest CT to document resolution 9. Patient signed AMA and left the hospital Patient Condition: Fair Hospital Course his is a 53-year-old male with a history of COPD/asthma presenting with chest pain that radiates from the right side of his chest to the left and to bilateral arms. No alleviating or exacerbating factors. Rates the pain as a 10 out of 10. He states that he has had this pain for the last 2 weeks. He states he was here 2 weeks ago but had to sign out AGAINST MEDICAL ADVICE due to family reasons. He is returning today because he continues to have pain and shortness of breath. His shortness of breath is not relieved by his home inhalers. Patient of note was here on 09/13 and was admitted for chest pain at the same time as well. He however fully denies he was not here on 09/13 but that it was 2 weeks ago. Patient is treated with nebulizer and levaquin for COPD exacerbation. Shortness of breath improved. Chest pain resolved. CT chest reported as focal ground - glass opacities of the right upper lobe likely due to infectious/inflammatory process. Consider follow-up in 3 months with low-dose chest CT to document resolution. Patient has iron deficiency anemia that endoscopy is planned but patient signed AMA and left the hospital prior to the procedure. Home Meds Reported Medications Albuterol Sulfate* (Ventolin HFA*) 18 Gm Hfa.aer.ad, 2 PUFF INHALATION Q4H, #1 INHALER 09/14/18 Lisinopril* (Lisinopril*) 40 Mg Tablet, 40 MG PO DAILY, #30 TAB 09/14/18 Budesonide-Formoterol Fumarate* (Symbicort*) 160-4.5 Hfa.aer.ad, 2 PUFF INHALATION BID, #1 EACH 09/14/18 Sertraline Hcl* (Zoloft*) 100 Mg Tablet, 100 MG PO DAILY, #30 TAB 09/14/18 Lorazepam* (Ativan*) 2 Mg Tablet, 2 MG PO HS PRN for ANXIETY, #30 TAB 09/13/18 Metoprolol Tartrate* (Lopressor*) 25 Mg Tab, 25 MG PO BID for 30 Days, #60 09/13/18 Furosemide* (Furosemide*) 40 Mg Tablet, 40 MG PO DAILY for 90 Days, #90 09/13/18 Discontinued Reported Medications Albuterol Sulfate* (Ventolin HFA*) 18 Gm Hfa.aer.ad 09/13/18 Omeprazole* (Omeprazole*) 20 Mg Capsule.dr, 20 MG PO DAILY for 90 Days, #90 09/13/18 Aspirin* (Aspirin* EC) 81 Mg Tablet.dr, 81 MG PO DAILY for 30 Days, #30 09/13/18 Budesonide-Formoterol Fumarate* (Symbicort*) 160-4.5 Hfa.aer.ad, for 90 Days 09/13/18 Follow-up Plan PCP as soon as possible Primary Care Provider Care Physician No Primary Pending Labs Laboratory Tests Test 09/15/18 17:30 09/15/18 19:58 Bedside Glucose 227 mg/dL (70-220) 127 mg/dL (70-220) URMILA OSWALD MD Sep 16, 2018 15:25
== END 2018-09-16 07:30 | disposition left against medical advice (07) | DRG 190 ==
LOC: E/R 17:50 → TEL 20:23 → OBSVTOIN 09-15 09:45
PROVIDERS: ADMIT Family Medicine; ATTEND Internal Medicine
DX: J44.0 Chronic obstructive pulmonary disease with (acute) lower respiratory infection (principal); J18.9 Pneumonia, unspecified organism; N17.9 Acute kidney failure, unspecified; J44.1 Chronic obstructive pulmonary disease with (acute) exacerbation; D50.9 Iron deficiency anemia, unspecified; F32.9 Major depressive disorder, single episode, unspecified; K76.0 Fatty (change of) liver, not elsewhere classified; I10 Essential (primary) hypertension; R73.9 Hyperglycemia, unspecified; R91.8 Other nonspecific abnormal finding of lung field; Z72.0 Tobacco use
CPT/HCPCS: 36415; 71045; 71250; 80048; 80053; 80307; 82550; 82553; 82803; 82962; 83735; 84484; 85025; 93005; 93306; 94640; 94644; 94664; 96374; 96375; G0378; J0360; J1100; J1170; J1815; J2270; J2916; J2920; J7040

== ENCOUNTER 2018-09-18 18:02 | Emergency (ER) | payer MEDICARE, OTHER ==
[~2018-09-18] VITALS: Wt 89.2 kg
[~2018-09-18 18:02] MED LIST changes: +ALBU18HF INHALATION; +BUDE6HFA INHALATION; +LISI40TA3 PO; +SERT100T PO
[2018-09-18] MEDS ORDERED: ALBUTEROL 0.5% (NEB) 2.5 MG/0.5 ML AMP INH STA (18:33)
[2018-09-18] MEDS ORDERED: ONDANSETRON 4 MG INJ IV STA ×2 (18:33→21:35)
[2018-09-18] MEDS ORDERED: morphine 4 MG/ML VIAL IV STA ×2 (18:33→21:35)
[2018-09-18] MEDS ORDERED: NITROGLYCERIN 2% 1 GM OINT PKT TD STA (18:33)
[2018-09-18] MEDS ORDERED: ASPIRIN 325 MG TAB PO STA (18:33)
--- NOTE | 2018-09-18 22:01 | ERD ---
ER Documentation Chief Complaint Chief Complaint CHEST PAIN, ABD PAIN, SWELLING ON EXTREMITIES X2 WEEKS HPI This is a 53-year-old male who has left AMA twice this week and is here again for chest pain. The patient states that his feet feel like they are swollen, and he is having some chest pain off and on for the past 2 weeks and it seems to be getting a bit worse. He is a very poor historian and tangential. He states his pain as a pressure-like feeling, nothing seems to make it worse or better. He does not get diaphoretic but says he has been wheezing a bit and short of breath today he says the pain does not radiate. He says sometimes it gets worse on exertion. ROS All systems reviewed and are negative except as per history of present illness. Medications Home Meds Reported Medications Albuterol Sulfate* (Ventolin HFA*) 18 Gm Hfa.aer.ad, 2 PUFF INHALATION Q4H, #1 INHALER 09/14/18 Lisinopril* (Lisinopril*) 40 Mg Tablet, 40 MG PO DAILY, #30 TAB 09/14/18 Budesonide-Formoterol Fumarate* (Symbicort*) 160-4.5 Hfa.aer.ad, 2 PUFF INHALATION BID, #1 EACH 09/14/18 Sertraline Hcl* (Zoloft*) 100 Mg Tablet, 100 MG PO DAILY, #30 TAB 09/14/18 Lorazepam* (Ativan*) 2 Mg Tablet, 2 MG PO HS PRN for ANXIETY, #30 TAB 09/13/18 Metoprolol Tartrate* (Lopressor*) 25 Mg Tab, 25 MG PO BID for 30 Days, #60 09/13/18 Furosemide* (Furosemide*) 40 Mg Tablet, 40 MG PO DAILY for 90 Days, #90 09/13/18 Discontinued Reported Medications Albuterol Sulfate* (Ventolin HFA*) 18 Gm Hfa.aer.ad 09/13/18 Omeprazole* (Omeprazole*) 20 Mg Capsule.dr, 20 MG PO DAILY for 90 Days, #90 09/13/18 Aspirin* (Aspirin* EC) 81 Mg Tablet.dr, 81 MG PO DAILY for 30 Days, #30 09/13/18 Budesonide-Formoterol Fumarate* (Symbicort*) 160-4.5 Hfa.aer.ad, for 90 Days 09/13/18 Allergies Allergies: Coded Allergies: hydrocodone (Verified Allergy, Unknown, 09/18/18) PMhx/Soc History of Surgery: Yes Anesthesia Reaction: No Hx Neurological Disorder: No Hx Respiratory Disorders: Yes (Asthma and COPD) Hx Cardiac Disorders: Yes (HTN) Hx Psychiatric Problems: No Hx Miscellaneous Medical Probl: No Hx Alcohol Use: No Hx Substance Use: Yes (Marijuana) Hx Tobacco Use: Yes Smoking Status: Current every day smoker FmHx Family History: No coronary disease Physical Exam Vitals Vital Signs Date Temp Pulse Resp B/P (MAP) Pulse Ox O2 O2 Flow FiO2 Time Delivery Rate 09/18/18 99 4.0 21:34 09/18/18 92 22 98 21 19:11 09/18/18 98.4 96 17 141/94 100 Room Air 18:30 (110) 09/18/18 96.3 104 16 159/103 100 18:07 (121) Physical Exam Const: Well-developed, well-nourished Head: Atraumatic, normocephalic Eyes: Normal Conjunctiva, PERRLA, EOMI, normal sclera, no nystagmus ENT: Normal External Ears, Nose and Mouth, moist mucus membranes. Neck: Full range of motion. No meningismus, no lymphadenopathy. Resp: Diffuse bilateral wheezes with good air movement Cardio: Regular rate and rhythm, no murmurs, S1 S2 present Abd: Soft, non tender x 4, non distended. Normal bowel sounds, no guarding or rebound, no pulsitile abdominal masses or bruits Skin: No petechiae or rashes, no ecchymosis , no maculopapular rash Back: No midline or flank tenderness Ext: No cyanosis, or edema, FROM x 4, normal inspection, neurovascularly intact x 4 Neur: Awake and alert, STR 5/5 x 4, sensation intact x 4, no focal findings, cerebellum intact Psych: Normal Mood and Affect Result Diagram: 09/18/18190909/18/181909 Results 24 hrs Laboratory Tests Test 09/18/18 19:10 White Blood Count 7.6 10^3/ul Red Blood Count 3.96 10^6/ul Hemoglobin 8.8 g/dl Hematocrit 29.8 % Mean Corpuscular Volume 75.3 fl Mean Corpuscular Hemoglobin 22.2 pg Mean Corpuscular Hemoglobin Concent 29.5 g/dl Red Cell Distribution Width 24.1 % Platelet Count 319 10^3/UL Mean Platelet Volume 10.2 fl Immature Granulocytes % 4.000 % Neutrophils % 71.4 % Lymphocytes % 16.8 % Monocytes % 6.3 % Eosinophils % 1.2 % Basophils % 0.3 % Nucleated Red Blood Cells % 0.3 /100WBC Immature Granulocytes # 0.300 10^3/ul Neutrophils # 5.4 10^3/ul Lymphocytes # 1.3 10^3/ul Monocytes # 0.5 10^3/ul Eosinophils # 0.1 10^3/ul Basophils # 0.0 10^3/ul Nucleated Red Blood Cells # 0.0 10^3/ul Sodium Level 141 mmol/L Potassium Level 3.9 mmol/L Chloride Level 106 mmol/L Carbon Dioxide Level 26 mmol/L Anion Gap 9 Blood Urea Nitrogen 15 mg/dl Creatinine 0.96 mg/dl Est Glomerular Filtrat Rate mL/min > 60 mL/min Glucose Level 94 mg/dl Calcium Level 9.2 mg/dl Total Bilirubin 0.4 mg/dl Direct Bilirubin 0.00 mg/dl Indirect Bilirubin 0.4 mg/dl Aspartate Amino Transf (AST/SGOT) 84 IU/L Alanine Aminotransferase (ALT/SGPT) 154 IU/L Alkaline Phosphatase 84 IU/L Troponin I < 0.012 ng/ml B-Type Natriuretic Peptide 101 PG/ML Total Protein 6.8 g/dl Albumin 4.1 g/dl Globulin 2.70 g/dl Albumin/Globulin Ratio 1.51 Current Medications Medications Dose Sig/John Start Time Status Last (Trade) Ordered Route PRN Stop Time Admin Dose Reason Admin Aspirin 325 mg ONCE STAT 09/18/18 DC 09/18/18 (Aspirin) PO 18:33 19:07 09/18/18 18:35 1 inch ONCE STAT 09/18/18 DC 09/18/18 Nitroglycerin TD 18:33 19:06 09/18/18 18:35 (Nitroglyceri n 2% Oint) Morphine 4 mg ONCE STAT 09/18/18 DC 09/18/18 Sulfate IV 18:33 19:11 (morphine) 09/18/18 18:35 Ondansetron 4 mg ONCE STAT 09/18/18 DC 09/18/18 HCl (Zofran IV 18:33 19:10 Inj) 09/18/18 18:35 Albuterol 10 mg ONCE STAT 09/18/18 DC 09/18/18 (Proventil INH 18:33 19:10 0.5% (Neb)) 09/18/18 18:35 Morphine 4 mg ONCE STAT 09/18/18 DC 09/18/18 Sulfate IV 21:35 21:55 (morphine) 09/18/18 21:36 Ondansetron 4 mg ONCE STAT 09/18/18 DC 09/18/18 HCl (Zofran IV 21:35 21:55 Inj) 09/18/18 21:36 Procedures/MDM MR #: [id number] DOS: 09/18/18 1833 Ordering MD: STAN LOYOLA DO Location: E/R Room/Bed: PROCEDURE: XR Chest. CLINICAL INDICATION: Chest pain. TECHNIQUE: Single frontal chest x-ray. COMPARISON: 09/14/2018 FINDINGS: Heart is enlarged.. There is no congestive heart failure.. There is h ypoventilation with minimal left basilar atelectasis.. There is no pleural effusion. There is no pneumothorax. The osseous structures are unremarkable. IMPRESSION: Cardiomegaly. No CHF or infiltrate. Hypoventilation with minimal left basilar atelectasis. RPTAT: HMVK .Geoffrey Clark MD, MD Date Time Electronically viewed and signed by .Geoffrey Clark MD, on 09/18/2018 20:06 .K/ CC: STAN LOYOLA DO [phone] EKG: Rate/Rhythm: Normal Sinus Rhythm,NL intervals QRS, ST, QT: NORMAL HI, QRS, QT] Impression: NORMAL EKG Spoke with Dr. Baltazar at panel, the patient has been ruled out for ACS last admission 1 AM a few days ago. He had negative troponins and was diagnosed with COPD exacerbation. Patient here keeps telling us he is having pain however he is snoring and asleep. He is completely comfortable keeps asking for morphine. He had a breathing treatment and I sounds much better his O2 sats are 99%. Going to get no troponin is normal/negative I will discharge him home with a COPD exacerbation. I feel like his behavior is consistent with drug-seeking behavior Departure Diagnosis: Primary Impression: COPD exacerbation Condition: Stable STAN LOYOLA DO Sep 18, 2018 22:01
[2018-09-18] MEDS ORDERED: ALBU8.5H8 INH (22:13)
[2018-09-18] MEDS ORDERED: PRED20TA PO (22:13)
[2018-09-18] MEDS ORDERED: METHYLPREDNISOLONE 125 MG INJ IV ONE (22:30)
[2018-09-18 22:34] VITALS: BP 134/98; PULSE 96; RESP 17
== END 2018-09-18 22:46 | disposition left against medical advice (07) ==
LOC: E/R 18:02
DX: J44.1 Chronic obstructive pulmonary disease with (acute) exacerbation (principal); I10 Essential (primary) hypertension; F17.210 Nicotine dependence, cigarettes, uncomplicated
CPT/HCPCS: 36415; 71045; 80053; 83880; 84484; 85025; 93005; 94644; 96374; 96375; 96376; 99285; J2270; J2405; J2930

== ENCOUNTER 2018-10-01 04:01 | Emergency (ER) | payer MEDICARE, OTHER ==
[~2018-10-01] VITALS: Wt 83.6 kg
[~2018-10-01 04:01] MED LIST changes: -ALBU18HF; +ALBU8.5H8 INH; -ASPI-817 PO; -BUDE6HFA; -OMEP20CA16 PO; +PRED20TA PO
[2018-10-01] MEDS ORDERED: ONDANSETRON 4 MG INJ IV STA (04:49)
[2018-10-01] MEDS ORDERED: DEXAMETHASONE 10 MG/ML 1 ML INJ IV STA (04:49)
[2018-10-01] MEDS ORDERED: ALBUTEROL 0.5% (NEB) 2.5 MG/0.5 ML AMP INH STA (04:49)
[2018-10-01] MEDS ORDERED: IPRATROPIUM (NEB) 0.5 MG/2.5 ML AMP INH STA (04:49)
[2018-10-01] MEDS ORDERED: MAGNESIUM SULFATE 2 GM/50 ML 50 ML IVPB STA (04:49)
[2018-10-01] MEDS ORDERED: SOD CHLORIDE 0.9% 1,000 ML IV STA (04:49)
[2018-10-01] MEDS ORDERED: morphine 4 MG/ML VIAL IV STA (04:49)
[2018-10-01 05:50] VITALS: BP 139/89; PULSE 110; RESP 16
[2018-10-01] MEDS ORDERED: ALBU18HF INHALATION (06:25)
[2018-10-01] MEDS ORDERED: AZIT250T PO (06:25)
[2018-10-01] MEDS ORDERED: DEC4 PO (06:25)
[2018-10-01] MEDS ORDERED: HYDROCODONE/APAP (10/325) TAB PO ONE (06:30)
[2018-10-01] MEDS ORDERED: IBUP800T48 PO (06:33)
--- NOTE | 2018-10-01 06:39 | ERD ---
ER Documentation Chief Complaint Chief Complaint CO CP, AP, SOB X'S 48 HRS HPI This is a 53-year-old gentleman who presents to the emergency room complaining of multiple issues. His main complaint is some chest pain and shortness of breath. The patient describes at least 48 hours of symptoms including cough congestion, shortness of breath and wheezing. The patient has a known history of COPD. He is no longer smoking. he denies any chest pressure. No exertional symptoms no calf swelling, no history of DVT. He notes mild cramping abdominal discomfort but this is a chronic issue for him and is unchanged. ROS All systems reviewed and are negative except as per history of present illness. Medications Home Meds Active Scripts Ibuprofen* (Motrin*) 800 Mg Tab, 800 MG PO Q6H PRN for PAIN AND OR ELEVATED TEMP, #30 TAB Prov:OMKAR FLYNN MD 10/01/18 Azithromycin* (Zithromax*) 250 Mg Tablet, 250 MG PO .ZPACK DIRECTED, #6 TAB TAKE 500 MG (2 TABS) THE FIRST DAY THEN 250 MG (1 TAB) DAYS 2-5 Prov:OMKAR FLYNN MD 10/01/18 Dexamethasone* (Decadron*) 4 Mg Tab, 8 MG PO BID for 1 Day, TAB Take dose tomorrow morning (10.02.18) Prov:OMKAR FLYNN MD 10/01/18 Albuterol Sulfate* (Ventolin HFA*) 18 Gm Hfa.aer.ad, 2 PUFF INHALATION Q4H, #1 INHALER Prov:OMKAR FLYNN MD 10/01/18 Albuterol Sulfate* (Proair HFA*) 8.5 Gm Hfa.aer.ad, 2 PUFF INH Q4, #1 INHALER Prov:STAN LOYOLA DO 09/18/18 Prednisone* (Prednisone*) 20 Mg Tab, 60 MG PO DAILY for 5 Days, TAB Prov:STAN LOYOLA DO 09/18/18 Reported Medications Albuterol Sulfate* (Ventolin HFA*) 18 Gm Hfa.aer.ad, 2 PUFF INHALATION Q4H, #1 INHALER 09/14/18 Lisinopril* (Lisinopril*) 40 Mg Tablet, 40 MG PO DAILY, #30 TAB 09/14/18 Budesonide-Formoterol Fumarate* (Symbicort*) 160-4.5 Hfa.aer.ad, 2 PUFF INHALATION BID, #1 EACH 09/14/18 Sertraline Hcl* (Zoloft*) 100 Mg Tablet, 100 MG PO DAILY, #30 TAB 09/14/18 Lorazepam* (Ativan*) 2 Mg Tablet, 2 MG PO HS PRN for ANXIETY, #30 TAB 09/13/18 Furosemide* (Furosemide*) 40 Mg Tablet, 40 MG PO DAILY for 90 Days, #90 09/13/18 Discontinued Reported Medications Metoprolol Tartrate* (Lopressor*) 25 Mg Tab, 25 MG PO BID for 30 Days, #60 09/13/18 Allergies Allergies: Coded Allergies: acetaminophen (Unverified Allergy, Unknown, 10/01/18) hydrocodone (Unverified Allergy, Unknown, 10/01/18) ibuprofen (Unverified Allergy, Unknown, 10/01/18) PMhx/Soc History of Surgery: Yes Anesthesia Reaction: No Hx Neurological Disorder: No Hx Respiratory Disorders: Yes (Asthma and COPD) Hx Cardiac Disorders: Yes (HTN) Hx Psychiatric Problems: No Hx Miscellaneous Medical Probl: No Hx Alcohol Use: No Hx Substance Use: Yes (Marijuana) Hx Tobacco Use: Yes Smoking Status: Never smoker FmHx Family History: No diabetes Physical Exam Vitals Vital Signs Date Temp Pulse Resp B/P (MAP) Pulse Ox O2 O2 Flow FiO2 Time Delivery Rate 10/01/18 110 16 139/89 97 Room Air 05:50 (106) 10/01/18 97.4 129 18 145/99 97 04:09 (114) Physical Exam General: Well developed, well nourished, no acute distress Head: Normocephalic, atraumatic. Eyes: Pupils equally reactive, EOM intact ENT: Moist mucous membranes Neck: Supple, no lymphadenopathy Respiratory: Wheezing diffusely, no respiratory distress Cardiovascular: RRR, no murmurs, rubs, or gallops Abdominal: Soft, non-tender, non-distended, no peritoneal signs : Deferred MSK: No edema, no unilateral swelling, 5/5 strength Neurologic: Alert and oriented, moving all extremities, normal speech, no focal weakness, no cerebellar signs Skin: No rash Psych: Normal mood Result Diagram: 10/01/18 0500 10/01/18 0500 Results 24 hrs Laboratory Tests Test 10/01/18 05:00 White Blood Count 3.8 10^3/ul Red Blood Count 4.08 10^6/ul Hemoglobin 9.2 g/dl Hematocrit 30.9 % Mean Corpuscular Volume 75.7 fl Mean Corpuscular Hemoglobin 22.5 pg Mean Corpuscular Hemoglobin Concent 29.8 g/dl Red Cell Distribution Width 23.3 % Platelet Count 288 10^3/UL Mean Platelet Volume 8.9 fl Immature Granulocytes % 0.800 % Neutrophils % 65.9 % Lymphocytes % 16.8 % Monocytes % 14.4 % Eosinophils % 1.6 % Basophils % 0.5 % Nucleated Red Blood Cells % 0.0 /100WBC Immature Granulocytes # 0.030 10^3/ul Neutrophils # 2.5 10^3/ul Lymphocytes # 0.6 10^3/ul Monocytes # 0.5 10^3/ul Eosinophils # 0.1 10^3/ul Basophils # 0.0 10^3/ul Nucleated Red Blood Cells # 0.0 10^3/ul D-Dimer 259.32 ng/ml D-Dimer Comment Sodium Level 142 mmol/L Potassium Level 4.5 mmol/L Chloride Level 106 mmol/L Carbon Dioxide Level 22 mmol/L Anion Gap 14 Blood Urea Nitrogen 15 mg/dl Creatinine 1.11 mg/dl Est Glomerular Filtrat Rate mL/min > 60 mL/min Glucose Level 98 mg/dl Calcium Level 9.4 mg/dl Total Bilirubin 0.1 mg/dl Direct Bilirubin 0.00 mg/dl Indirect Bilirubin 0.1 mg/dl Aspartate Amino Transf (AST/SGOT) 38 IU/L Alanine Aminotransferase (ALT/SGPT) 32 IU/L Alkaline Phosphatase 123 IU/L Troponin I < 0.012 ng/ml Total Protein 7.2 g/dl Albumin 4.3 g/dl Globulin 2.90 g/dl Albumin/Globulin Ratio 1.48 Lipase 248 U/L Current Medications Medications Dose Sig/John Start Time Status Last (Trade) Ordered Route PRN Stop Time Admin Dose Reason Admin Sodium 1,000 ml @ Q1H STAT 10/01/18 DC 10/01/18 Chloride 1,000 mls/hr IV 04:49 05:49 10/01/18 05:48 Morphine 4 mg ONCE STAT 10/01/18 DC 10/01/18 Sulfate IV 04:49 05:29 (morphine) 10/01/18 04:51 Ondansetron 4 mg ONCE STAT 10/01/18 DC 10/01/18 HCl (Zofran IV 04:49 05:29 Inj) 10/01/18 04:51 Albuterol 5 mg ONCE STAT 10/01/18 DC (Proventil INH 04:49 0.5% (Neb)) 10/01/18 04:51 Ipratropium 1 mg ONCE STAT 10/01/18 DC [place] INH 04:49 (Atrovent 10/01/18 04:52 0.02% (Neb)) 10 mg ONCE STAT 10/01/18 DC 10/01/18 Dexamethasone IV 04:49 05:29 (Decadron) 10/01/18 04:52 Magnesium 50 ml @ 25 ONCE STAT 10/01/18 10/01/18 Sulfate mls/hr IVPB 04:49 05:29 10/01/18 06:48 1 tab ONCE ONCE 10/01/18 DC Acetaminophen PO 06:30 / 10/01/18 06:32 Hydrocodone Bitart ([place] ()) Procedures/MDM EKG, MONITORS, & DIAGNOSTIC IMAGING: EKG: I reviewed and interpreted a 12-lead EKG. Rhythm: Sinus tachycardia ST Changes: No contiguous ST segment elevations T waves: No contiguous T wave inversions Impression: [No evidence of acute cardiac ischemia] Chest x-ray: I reviewed and interpreted a 1 view of the chest Mediastinum: No enlargement Cardiac silhouette: Borderline cardiomegaly Airspace: Scant left-sided effusion Bones: No evidence of fracture LAB INTERPRETATION: I reviewed the laboratory testing and it shows negative troponin MEDICAL DECISION MAKING: After review of the patient's electronic medical record this is the patient's fourth visit for similar related symptoms this month. Patient has had multiple hospitalizations during which she left AGAINST MEDICAL ADVICE. The patient's chest pain seems very atypical and I have a low pretest probability for acute coronary syndrome. The patient has had multiple negative troponins during hospitalization but has not completed his workup. At this point I do not be lieve that further hospitalization for cardiac etiology is necessary. Outpatient follow-up may be appropriate and eventually the patient may require provocative testing but this is not consistent with acute coronary syndrome. The patient is wheezing and I believe his chest pain is more likely secondary to COPD exacerbation. A d-dimer would be appropriate to rule out pulmonary embolism but again very low pretest probability. The patient has exhibited signs and symptoms concerning for narcotic dependence or drug-seeking behavior. ER COURSE: * The patient received breathing treatment, steroids * Symptoms are improved. The patient was given pain control medication. * The patient was asking for more pain medication and narcotics. He was given [place] and is improved at this time. He initially listed allergies as acetaminophen, hydrocodone and ibuprofen but states that he can take all of th tomi without issue. * At this point the patient's d-dimer is negative, troponin is negative and patient is resting comfortably. He has slight tachycardia but this is unchanged. The patient is resting comfortably, talking in full sentences and watching videos on his phone. I do not believe that repeat hospitalization is necessary at this point. I believe he can be safely discharged home and follo w-up with a primary care physician. He is asking for a prescription for narcotics and I do not feel comfortable prescribing this at this time. He was directed to his primary care physician. CONSULTATION: [None] DISPOSITION PLAN: The patient does not have an identifiable emergent medical condition that warrants inpatient hospitalization at this time. The patient is deemed safe for discharge with outpatient follow-up. We discussed follow up with the patient's primary care doctor within 24 to 48 hours as needed. We also discussed return to the emergency room for worsening symptoms or worsening condition. Outpatient referral: [None required] Discharge Medications: Albuterol, Decadron, Motrin, azithromycin Departure Diagnosis: Primary Impression: Acute exacerbation of COPD with asthma Additional Impression: Chronic chest pain Condition: Stable Patient Instructions: Copd Flare Referrals: [facility] YOU HAVE RECEIVED A MEDICAL SCREENING EXAM AND THE RESULTS INDICATE THAT YOU DO NOT HAVE A CONDITION THAT REQUIRES URGENT TREATMENT IN THE EMERGENCY DEPARTMENT. FURTHER EVALUATION AND TREATMENT OF YOUR CONDITION CAN WAIT UNTIL YOU ARE SEEN IN YOUR DOCTORS OFFICE WITHIN THE NEXT 1-2 DAYS. IT IS YOUR RESPONSIBILITY TO MAKE AN APPOINTMENT FOR FOLOW-UP CARE. IF YOU HAVE A PRIMARY DOCTOR --you should call your primary doctor and schedule an appointment IF YOU DO NOT HAVE A PRIMARY DOCTOR YOU CAN CALL OUR PHYSICIAN REFERRAL HOTLINE AT IF YOU CAN NOT AFFORD TO SEE A PHYSICIAN YOU CAN CHOSE FROM THE FOLLOWING [facility] CLINICS [facility] [address] [facility] [address] [facility] [address] [facility] [address] [facility] [address] [facility]. [facility]. [address] [facility] [facility] YOU HAVE RECEIVED A MEDICAL SCREENING EXAM AND THE RESULTS INDICATE THAT YOU DO NOT HAVE A CONDITION THAT REQUIRES URGENT TREATMENT IN THE EMERGENCY DEPARTMENT. FURTHER EVALUATION AND TREATMENT OF YOUR CONDITION CAN WAIT UNTIL YOU ARE SEEN IN YOUR DOCTORS OFFICE WITHIN THE NEXT 1-2 DAYS. IT IS YOUR RESPONSIBILITY TO MAKE AN APPOINTMENT FOR FOLOW-UP CARE. IF YOU HAVE A PRIMARY DOCTOR --you should call your primary doctor and schedule and appointment IF YOU DO NOT HAVE A PRIMARY DOCTOR YOU CAN CALL OUR PHYSICIAN REFERRAL HOTLINE AT . IF YOU CAN NOT AFFORD TO SEE A PHYSICIAN YOU CAN CHOSE FROM THE FOLLOWING [facility] INSTITUTIONS: [facility] [address] [place] [address] [facility] [address] [place] [address] [facility] [address] [place] [address] Additional Instructions: Call your primary care doctor TOMORROW for an appointment during the next 1 WEEK.Tell the accredited legal secretary that you were referred from this facility.See the doctor sooner or return here if your condition worsens before your appointment time. OMKAR FLYNN MD Oct 01, 2018 06:39
== END 2018-10-01 07:59 | disposition home or self-care (01) ==
LOC: E/R 04:01
DX: J44.1 Chronic obstructive pulmonary disease with (acute) exacerbation (principal); I10 Essential (primary) hypertension; J45.901 Unspecified asthma with (acute) exacerbation
CPT/HCPCS: 36415; 71045; 80053; 83690; 84484; 85025; 85378; 93005; 94644; 96374; 96375; 99285; J1100; J2270; J2405; J3475; J7030